=== PATIENT | female | born 1995 | race Caucasian/White ===

== ENCOUNTER 2018-07-25 15:46 | Emergency (ER) | payer OTHER ==
[2018-07-25] MEDS: LIDOCAINE W/EPINEPHRINE 1% 20ML VIAL SC (17:56)
[2018-07-25] MEDS: ADACEL/BOOSTRIX VACCINE (DIPHTH/PERTUSS/ACELL/TETANUS)0.5ML SYR (90715) IM (17:56)
== END 2018-07-25 18:48 | disposition home or self-care (01) ==
LOC: M ED 15:46
DX: S61.412A Laceration without foreign body of left hand, initial encounter (principal); W25.XXXA Contact with sharp glass, initial encounter; Y92.018 Other place in single-family (private) house as the place of occurrence of the external cause; F33.9 Major depressive disorder, recurrent, unspecified; F41.9 Anxiety disorder, unspecified; Z88.1 Allergy status to other antibiotic agents; Z88.2 Allergy status to sulfonamides
CPT/HCPCS: 90715

== ENCOUNTER 2018-08-04 11:19 | Emergency (ER) | payer OTHER | END 2018-08-04 11:52 | disposition home or self-care (01) | LOC: M ED 11:19 | DX: Z48.02 Encounter for removal of sutures (principal); F41.9 Anxiety disorder, unspecified; F32.9 Major depressive disorder, single episode, unspecified; Z88.2 Allergy status to sulfonamides | CPT/HCPCS: 99282 ==

== ENCOUNTER 2018-10-17 11:04 | Emergency (ER) | payer BC, OTHER | END 2018-10-17 11:42 | disposition home or self-care (01) | LOC: M ED 11:04 | DX: K08.89 Other specified disorders of teeth and supporting structures (principal); F33.9 Major depressive disorder, recurrent, unspecified; F41.9 Anxiety disorder, unspecified; Z88.1 Allergy status to other antibiotic agents; Z88.2 Allergy status to sulfonamides | CPT/HCPCS: 99282 ==

== ENCOUNTER 2019-08-07 10:02 | Emergency (ER) | payer BC, MEDICAID, OTHER, SELFPAY ==
[~2019-08-07] VITALS: Ht 165.1 cm; Wt 79.5 kg
[~2019-08-07 10:02] MED LIST: AMOX500C PO; IBUP-1022; [UNRECOGNIZED DRUG - REMARK] OD
[2019-08-07] MEDS ORDERED: KETOROLAC 30 MG/ML VIAL (J1885) IV ONE (10:30)
[2019-08-07] MEDS ORDERED: NS 1,000 ML IV ONE (10:30)
[2019-08-07] MEDS ORDERED: ONDANSETRON 4MG/2ML VIAL (J2405) IV ONE (10:30)
[2019-08-07] MEDS ORDERED: ISOVUE-370 76% 100ML VIAL (Q9967) As Ordered ONE (11:12)
[2019-08-07 11:16] LABS: BASO # 0.1 10^3/uL (0.0-0.2); BASO % 0.6 % (0.0-1.0); EOS # 0.1 10^3/uL (0.0-0.5); EOS % 0.4 % (0.0-3.0); HEMOGLOBIN 12.2 g/dl (12.0-15.5); LYMPH # 1.5 10^3/uL (1.5-5.0); MEAN CORPUSCULAR HEMOGLOBIN 27.2 pg (27.0-33.0); MEAN CORPUSCULAR HGB CONC 32.1 g/dl (32.0-36.5); MEAN CORPUSCULAR VOLUME 84.6 fl (80.0-96.0); MONO # 0.6 10^3/uL (0.0-0.8); MONO % 4.8 % (0.0-5.0); NEUTROPHILS # 10.4 10^3/uL (1.5-8.5); NEUTROPHILS % 81.8 % (36.0-66.0); PLATELET COUNT, AUTOMATED 328 10^3/uL (150-450); RED BLOOD COUNT 4.49 10^6/uL (4.00-5.40); WHITE BLOOD COUNT 12.7 10^3/uL (4.0-10.0)
[2019-08-07 11:37] LABS: ALBUMIN 4.3 GM/DL (3.2-5.2); BILIRUBIN,DIRECT 0.2 MG/DL (0.0-0.2); BILIRUBIN,TOTAL 0.6 MG/DL (0.2-1.0); TOTAL PROTEIN 7.8 GM/DL (6.4-8.2)
--- NOTE | 2019-08-07 12:21 | REP ---
CT ABDOMEN AND PELVIS WITH IV CONTRAST: TECHNIQUE: Axial contrast enhanced images from the lung bases to the pubic symphysis using 100 mL Isovue 370 intravenous contrast material with multiplanar reformations. The visualized lung bases are clear. The liver demonstrates focal fatty infiltration anteriorly along the fissure for the ligamentum teres. Gallbladder is grossly unremarkable. Spleen, adrenals, and pancreas, as well as kidneys appear unremarkable. There is no hydronephrosis bilaterally. There is no adenopathy. There is no free air. No bowel wall thickening is seen. There is no evidence of appendicitis. In the pelvis, there is a complex septated cystic mass extending above the uterus. This probably arises from the right ovary. It measures approximately 9.8 x 8.0 cm. Anteriorly, there is a more simple appearing oval cyst 3.5 cm maximally, which is likely arising from the left ovary. There is mild free fluid in the right lower quadrant. Urinary bladder is not well distended and not well evaluated. IMPRESSION: Large complex septated cystic mass in the pelvis probably arising from the right ovary measuring 9.8 x 8.0 cm. More anteriorly, an oval simple appearing cyst probably arises from the left ovary, maximum diameter 3.5 cm. There is mild free fluid in the right lower quadrant. No evidence of appendicitis. Electronically Signed by Delgado Blackmon MD 08/07/2019 05:38 P
--- NOTE | 2019-08-07 13:56 | REP ---
PELVIC ULTRASOUND: Real-time sonographic evaluation of the pelvis is performed utilizing transabdominal technique. The bladder measures 4.8 x 3.6 x 5.0 cm. The uterus measures 6.8 x 3.2 x 6.3 cm. Endometrial thickness is 6 mm. Right ovary is markedly enlarged and is essentially replaced by a complex cystic mass, which measures 4.8 x 8.5 x 9.0 cm. There is a simple cyst of the left ovary 3.2 x 2.4 x 3.0 cm. No torsion is seen bilaterally, RI right ovary 0.58 and left ovary 0.62. No significant free fluid is seen in the pelvis. IMPRESSION: Complex cystic mass right ovary with simple cyst left ovary as discussed above. No torsion. Electronically Signed by Delgado Blackmon MD 08/07/2019 05:38 P
[2019-08-07] MEDS ORDERED: KETO10TAB PO (15:08)
[2019-08-07 15:12] VITALS: BP 125/65
--- NOTE | 2019-08-08 12:41 | ED PDOC ---
Post-Departure Follow-Up dr gupta faxed formal report of pelvic us for fu Rosa Jefferson MD Aug 08, 2019 12:41
== END 2019-08-07 15:19 | disposition home or self-care (01) ==
LOC: M ED 10:02
DX: N83.291 Other ovarian cyst, right side (principal); F33.9 Major depressive disorder, recurrent, unspecified; F41.9 Anxiety disorder, unspecified; Z88.2 Allergy status to sulfonamides
CPT/HCPCS: 74177; 76856; 80047; 80076; 81001; 83690; 84702; 85025; 87086; 93976; 96361; 96374; 96375; 99284; J1885; J2405; Q9967

== ENCOUNTER → 2019-12-12 | Outpatient (CLI) | payer OTHER ==
[~2019-12-12] MED LIST changes: +KETO10TAB PO
[2019-12-12 15:26] LABS: HEPATITIS C VIRUS ABY INDEX < 0.0 INDEX (<0.8); HIV 1&2 SCREEN CENTAUR NEGATIVE (NEGATIVE)
== END ==
LOC: M PLALAB 12:03
PROVIDERS: ATTEND Advanced Practice Midwife
DX: Z11.3 Encounter for screening for infections with a predominantly sexual mode of transmission (principal); Z80.3 Family history of malignant neoplasm of breast; Z80.49 Family history of malignant neoplasm of other genital organs

== ENCOUNTER → 2019-12-16 | Outpatient (CLI) | payer BC, MEDICAID, OTHER ==
--- NOTE | 2019-12-17 07:34 | REP ---
BILATERAL MAMMOGRAM WITH 3D TOMOSYNTHESIS AND LEFT BREAST ULTRASOUND: CLINICAL HISTORY: Bilateral breast pain. This is particularly present in the upper left breast. Family history of breast cancer in paternal grandmother. This is a baseline mammogram. MLO and CC views of both breast performed in the MLO and CC projections. There is heterogeneously dense fibroglandular tissue bilaterally with no evidence of suspicious mass or clustered microcalcifications. Small axillary lymph nodes are present bilaterally. Real-time sonographic evaluation of the upper left breast performed in the region of the most pain. No cystic or solid nodule is seen. IMPRESSION: BIRADS 2: BI-RADS/ACR category 2 mammogram. Benign Findings. ACR 2 benign. Mildly dense breast parenchyma bilaterally. No mass or clustered microcalcifications. No sonographic evidence of mass in the region of pain in the upper left breast. Clinical correlation and followup is recommended. This mammogram was interpreted with the aid of an FDA-approved computer-aided detection system. A. Negative x-ray reports should not delay biopsy if a dominant or clinically suspicious mass is present. B. Four to eight percent of cancers are not identified by x-ray. C. Adenosis and dense breasts may obscure an underlying neoplasm. The patient states she/he had a clinical breast exam in November 2019. The patient letter being requested is M2. Electronically Signed by Delgado Blackmon MD 12/17/2019 10:35 P
== END ==
LOC: M RAD 14:11
PROVIDERS: ATTEND Advanced Practice Midwife
DX: N64.4 Mastodynia (principal); Z80.3 Family history of malignant neoplasm of breast
CPT/HCPCS: 76642; 77066; G0279

== ENCOUNTER → 2020-01-20 | Outpatient (CLI) | payer BC, MEDICAID, OTHER ==
--- NOTE | 2020-01-20 13:04 | REP ---
Pelvic sonography: History: Ovarian cyst left side. Comparison pelvic sonography August 07, 2019. This showed a complex cystic lesion in the right ovary 4.8 x 8.5 x 9.0 cm. There was a simple appearing cyst in the left ovary 3.2 x 2.4 x 3.0 cm. Today's pelvic sonography findings: Transabdominal scanning is performed. Uterine dimensions are normal at 6.9 x 3.5 x 5.1 cm. Endometrial echo is 1.1 cm thick and centrally placed. No focal uterine mass is seen. No free fluid is noted. There is a large complex cystic lesion in the right adnexa measuring 9.5 x 8.2 x 6.5 cm in overall dimension. This is larger than on the prior study. There is Doppler flow in the right ovary, resistive index 0.63. The left ovary is enlarged as well measuring 6.4 x 4.0 x 6.9 cm in overall dimension. Its Doppler flow is visible, resistive index 0.51. There are two large left adnexal cysts. A thin septation is seen in the one of the cysts. This cyst measures 2.9 x 3.3 x 3.9 cm. A second cystic component in the left ovary today measures 3.6 x 3.0 x 3.2 cm. Impression: Cystic lesions bilaterally. Complex cystic lesion in the right adnexal has enlarged since the prior study. There is a second cystic lesion in the left ovary today.
== END ==
LOC: M WHC 09:24
PROVIDERS: ATTEND Obstetrics & Gynecology
DX: N83.292 Other ovarian cyst, left side (principal); N83.8 Other noninflammatory disorders of ovary, fallopian tube and broad ligament

== ENCOUNTER → 2020-02-04 | Outpatient (CLI) | payer MEDICAID ==
[2020-02-04 20:01] LABS: BASO # 0.1 10^3/uL (0.0-0.2); EOS # 0.1 10^3/uL (0.0-0.5); EOS % 1.6 % (0.0-3.0); HEMATOCRIT 31.6 % (36.0-47.0); LYMPH # 1.7 10^3/uL (1.5-5.0); LYMPH % 32.2 % (24.0-44.0); MEAN CORPUSCULAR HEMOGLOBIN 27.2 pg (27.0-33.0); MEAN CORPUSCULAR HGB CONC 31.6 g/dl (32.0-36.5); MEAN CORPUSCULAR VOLUME 85.9 fl (80.0-96.0); MONO # 0.4 10^3/uL (0.0-0.8); MONO % 7.8 % (0.0-5.0); NEUTROPHILS % 57.2 % (36.0-66.0); PLATELET COUNT, AUTOMATED 273 10^3/uL (150-450); RED BLOOD COUNT 3.68 10^6/uL (4.00-5.40); WHITE BLOOD COUNT 5.2 10^3/uL (4.0-10.0)
[2020-02-04 20:35] LABS: ALBUMIN 3.6 GM/DL (3.2-5.2); ALT/SGPT 15 U/L (12-78); BILIRUBIN,TOTAL 0.4 MG/DL (0.2-1.0); BLOOD UREA NITROGEN 17 MG/DL (7-18); CALCIUM LEVEL 8.8 MG/DL (8.5-10.1); CARBON DIOXIDE LEVEL 29 MEQ/L (21-32); CHLORIDE LEVEL 112 MEQ/L (98-107); CHOLESTEROL LEVEL 125 MG/DL (<200); CHOLESTEROL RISK RATIO 2.976 (<5); CREATININE FOR GFR 0.69 MG/DL (0.55-1.30); FREE T4 0.98 NG/DL (0.76-1.46); GLOMERULAR FILTRATION RATE > 60.0 (>60); GLUCOSE, FASTING 78 MG/DL (70-100); HDL CHOLESTEROL 42 MG/DL (>40); LDL CHOLESTEROL 73 MG/DL (<100); NON-HDL-C 83 MG/DL; POTASSIUM SERUM 3.8 MEQ/L (3.5-5.1); SODIUM LEVEL 143 MEQ/L (136-145); TOTAL 25(OH) VITAMIN D 12.6 NG/ML (30.0-100.0); TOTAL PROTEIN 6.6 GM/DL (6.4-8.2); TRIGLYCERIDES LEVEL 48 MG/DL (<150)
== END ==
LOC: M WUC 11:01
PROVIDERS: ATTEND Physician Assistant
DX: Z13.21 Encounter for screening for nutritional disorder (principal); Z13.29 Encounter for screening for other suspected endocrine disorder; Z13.220 Encounter for screening for lipoid disorders; Z91.09 Other allergy status, other than to drugs and biological substances

== ENCOUNTER → 2020-03-13 | Outpatient (CLI) | payer MEDICAID | LOC: M WHC 09:52 | PROVIDERS: ATTEND Obstetrics & Gynecology | DX: D27.9 Benign neoplasm of unspecified ovary (principal) ==

== ENCOUNTER → 2020-04-06 | Outpatient (CLI) | payer MEDICAID ==
--- NOTE | 2020-04-06 14:16 | REP ---
PELVIC ULTRASOUND: Real-time sonographic evaluation of the pelvis is performed utilizing transabdominal technique. The bladder measures 5.3 x 6.1 cm. The uterus is 7.2 x 3.7 x 4.8 cm. The endometrial thickness is 8 mm with no endometrial fluid collection. Once again, there is a complex right adnexal mass containing scattered internal echoes and septations. Peripheral soft tissue component appears unchanged. It measures 9.6 x 6.9 x 8.4 cm and does not appear to have significantly changed since the study of 01/20/2020. Left ovary measures 5.6 x 3.9 x 4.6 cm. A cyst is seen measuring 3.9 x 2.7 x 3.5 cm. Prior study showed two similar-sized cysts, therefore, one appears to have resolved. No free fluid is seen. Blood flow is seen in each ovary with duplex Doppler evaluation, with no torsion. IMPRESSION: No change in the complex cystic mass right ovary. One of the previously identified two left ovarian cysts appears to have resolved. There is one persistent cyst of the left ovary with a maximum diameter of 3.9 cm.
== END ==
LOC: M WHC 12:53
PROVIDERS: ATTEND Obstetrics & Gynecology
DX: D27.0 Benign neoplasm of right ovary (principal)

== ENCOUNTER → 2020-05-11 | Outpatient (CLI) | payer MEDICAID ==
[~2020-05-11] MED LIST changes: +CLAR10CA3 PO; +IBUP200C25 PO; +IBUP80TA PO; +IRON27TA2 PO; +PERCOCET PO; +TRIA25CR TOP; +VIST25CA PO; +VITA50005 PO
== END ==
LOC: M LABSMTC 09:52
PROVIDERS: ATTEND Anesthesiology
DX: Z01.818 Encounter for other preprocedural examination (principal)
CPT/HCPCS: C9803; U0003

== ENCOUNTER 2020-05-14 07:41 | Day surgery (SDC) | payer MEDICAID ==
[~2020-05-14] VITALS: Ht 165.1 cm; Wt 83.8 kg
[~2020-05-14 07:41] MED LIST changes: +BUPIVACAINE HCL 0.25% 30ML VIAL As Ordered ONE; -IBUP80TA PO; +LR 1,000 ML IV ONE; -PERCOCET PO
[2020-05-14] MEDS ORDERED: MIDAZOLAM INJ 2MG/2ML VIAL (J2250 PER 1MG) As Ordered ONE (08:09)
[2020-05-14] MEDS ORDERED: ONDANSETRON 4MG/2ML VIAL As Ordered ONE (08:09)
[2020-05-14] MEDS ORDERED: LIDOCAINE 2% 100MG/5ML SDV (FOR ANES.) As Ordered ONE (08:09)
[2020-05-14] MEDS ORDERED: fentaNYL 100 MCG/2 ML INJECTION (J3010) As Ordered ONE ×2 (08:09→10:16)
[2020-05-14] MEDS ORDERED: dexameTHASONE 4 MG/ML 1ML VIAL (J1100 PER 1MG) As Ordered ONE (08:09)
[2020-05-14] MEDS ORDERED: propofoL 200 MG/20 ML VIAL As Ordered ONE (08:09)
[2020-05-14] MEDS ORDERED: ROCURONIUM BROMIDE 50 MG/5 ML VIAL As Ordered ONE (08:09)
[2020-05-14 08:23] LABS: HEMATOCRIT 37.1 % (36.0-47.0); HEMOGLOBIN 12.1 g/dl (12.0-15.5); MEAN CORPUSCULAR HEMOGLOBIN 28.7 pg (27.0-33.0); MEAN CORPUSCULAR HGB CONC 32.6 g/dl (32.0-36.5); MEAN CORPUSCULAR VOLUME 87.9 fl (80.0-96.0); PLATELET COUNT, AUTOMATED 295 10^3/uL (150-450); RED BLOOD COUNT 4.22 10^6/uL (4.00-5.40); WHITE BLOOD COUNT 7.4 10^3/uL (4.0-10.0)
[2020-05-14] MEDS ORDERED: SCOPOLAMINE 1MG TRANSDERMAL PATCH TOP ONE (08:30)
[2020-05-14] MEDS ORDERED: ACETAMINOPHEN 1000MG 100ML IV BTL (OFIRMEV) (J0131 PER 10MG) As Ordered ONE (10:16)
[2020-05-14] MEDS ORDERED: KETOROLAC 60MG 2ML VIAL As Ordered ONE (10:24)
[2020-05-14] MEDS ORDERED: SUGAMMADEX SODIUM 500 MG/5 ML VIAL (BRIDION) As Ordered ONE (10:24)
[2020-05-14] MEDS ORDERED: ESMOLOL INJ 100MG/10ML VIAL As Ordered ONE (10:53)
[2020-05-14] MEDS ORDERED: DESFLURANE 240 ML INHALANT As Ordered ONE (11:48)
[2020-05-14] MEDS ORDERED: oxyCODONE 5MG TAB PO PRN (12:30)
[2020-05-14] MEDS ORDERED: PERCOCET 5MG/325MG TAB PO PRN (12:30)
[2020-05-14] MEDS ORDERED: ONDANSETRON 4MG/2ML VIAL IV PRN (12:30)
[2020-05-14] MEDS ORDERED: fentaNYL 100 MCG/2 ML INJECTION (J3010) IV PRN (12:30)
[2020-05-14] MEDS ORDERED: LR 1,000 ML IV SCH (12:30)
[2020-05-14] MEDS ORDERED: MEPERIDINE INJ 25 MG/ML VIAL (J2175) IV PRN (12:30)
[2020-05-14] MEDS ORDERED: IBUP80TA PO (12:38)
[2020-05-14] MEDS ORDERED: PERCOCET PO (12:39)
--- NOTE | 2020-05-14 12:54 | ROOPDOC ---
[facility] Report Of Operation Report of Operation DATE OF PROCEDURE: 05/14/2020 PREOPERATIVE DIAGNOSIS: Right ovarian cysts POSTOPERATIVE DIAGNOSIS: 1. Right endometrioma 2. Left ovarian cysts 3. Endometriosis PROCEDURE: Laparoscopic bilateral ovarian cystectomy. SURGEON: Muriel Holliday MD COREMAKER SUPERVISOR: Waqar Andres MD ANESTHESIA: General SPECIMEN: Right endometrioma, left ovarian cysts URINE OUTPUT: 150 mL. ESTIMATED BLOOD LOSS: 100 mL. INTRAVENOUS FLUIDS: 1000 mL of lactated Ringer solution. PREOPERATIVE ANTIBIOTICS: None. INFECTION CLASSIFICATION: 1. OPERATIVE FINDINGS: The patient had an approximately 7 cm right endometrioma and left 4 cm ovarian cyst. Endometriosis throughout the posterior cul-de-sac, which was initially obliterated. DESCRIPTION OF OPERATION: After informed consent was obtained and written content was reviewed, the patient was brought to the operating room where general endotracheal anesthesia was obtained. She was then placed in lithotomy position and was prepped and draped in a normal sterile fashion. A time out in the operating room was then performed identifying the patient, the procedure to be performed, as well as drug allergies. A bivalved speculum was then placed revealing the cervix. The anterior lip of the cervix was grasped with a single toothed tenaculum. A Hulka tenaculum was advanced through the cervical os for means to manipulate the uterus. The single tooth tenaculum as well as the speculum was removed. A Vargas catheter was in place and set to gravity. Gloves were changed. Attention was turned to the patient's abdomen. The umbilical region was infused with 0.25% Marcaine. An incision was made in this area. A 11 mm trocar and sleeve was advanced. The laparoscope was then replaced revealing intra-abdominal placement. The pneumoperitoneum was then obtained with CO2 gas. Two additional port sites were placed, to left and right side of the patient's abdomen. These areas were infused with 0.25% Marcaine. Incision was made in each one of these areas and 5 mm trocars and sleeves were advanced through each one of these incisions under direct visualization. The abdomen was then surveyed with the above noted findings. Next, using a harmonic scalpel device, the left ovarian cyst wall was then opened. This was further dissected out. Intraoperative rupture was performed, I was then able to peel out the left ovarian cyst and removed from the patient's abdomen. Next, using Harmonic Lico scalpel device, lysis of adhesion was performed, releasing the right adnexa from the posterior cul-de-sac. This area was densely adhered with endometriosis. Intraoperative rupture was performed, productive of chocolate-appearing fluid consistent with an endometrioma. The cyst wall was then dissected off the ovarian tissue and this was removed in pieces from the abdomen. The abdomen was then suctioned and irrigated. Fallopian tubes were inspected and noted to be normal. The surgical sites were then inspected and noted to be hemostatic. Instruments were then removed from the patient's abdomen. The pneumoperitoneum was then released. All three skin incisions were closed with #4-0 Monocryl and dressed with Dermabond. Vargas catheter was removed as well as Hulka tenaculum. Tenaculum sites inspected and noted to be hemostatic. The patient was then taken out of lithotomy position, was awakened from general anesthesia and taken to recovery in stable condition. Dr. Andres, my ophthalmic surgical assistant, played an essential role during surgery. He assisted with tissue identification, retraction, as well as, assisting with the laparoscopic cystectomy and wound closure. MURIEL HOLLIDAY MD. May 14, 2020 12:54
[2020-05-14 15:00] VITALS: BP 134/70
[2020-05-14] MEDS ORDERED: KETOROLAC 30 MG/ML 1ML VIAL IV SCH (18:00)
== END 2020-05-14 15:09 | disposition home or self-care (01) ==
LOC: M SDC 07:41
PROVIDERS: ATTEND Obstetrics & Gynecology
DX: N80.1 Endometriosis of ovary (principal); N83.202 Unspecified ovarian cyst, left side; N80.3 Endometriosis of pelvic peritoneum; Z86.2 Personal history of diseases of the blood and blood-forming organs and certain disorders involving the immune mechanism; Z91.048 Other nonmedicinal substance allergy status; Z86.59 Personal history of other mental and behavioral disorders; Z88.2 Allergy status to sulfonamides
CPT/HCPCS: 36415; 58662; 81025; 85027; 86850; 86900; 86901; 88305; J0131; J1100; J1885; J2250; J2405; J3010

== ENCOUNTER → 2020-09-06 | Outpatient (CLI) | payer MEDICAID ==
[~2020-09-06] MED LIST changes: -BUPIVACAINE HCL 0.25% 30ML VIAL As Ordered ONE; +IBUP80TA PO; -LR 1,000 ML IV ONE; +PERCOCET PO
[2020-09-06 14:58] LABS: BASO # 0.1 10^3/uL (0.0-0.2); EOS # 0.1 10^3/uL (0.0-0.5); EOS % 1.2 % (0.0-3.0); HEMATOCRIT 43.7 % (36.0-47.0); HEMOGLOBIN 14.6 g/dl (12.0-15.5); LYMPH # 1.6 10^3/uL (1.5-5.0); LYMPH % 27.8 % (24.0-44.0); MEAN CORPUSCULAR HEMOGLOBIN 30.2 pg (27.0-33.0); MEAN CORPUSCULAR HGB CONC 33.4 g/dl (32.0-36.5); MEAN CORPUSCULAR VOLUME 90.3 fl (80.0-96.0); MONO # 0.5 10^3/uL (0.0-0.8); MONO % 8.1 % (0.0-5.0); NEUTROPHILS # 3.6 10^3/uL (1.5-8.5); NEUTROPHILS % 61.7 % (36.0-66.0); PLATELET COUNT, AUTOMATED 293 10^3/uL (150-450); RED BLOOD COUNT 4.84 10^6/uL (4.00-5.40); WHITE BLOOD COUNT 5.8 10^3/uL (4.0-10.0)
[2020-09-06 15:33] LABS: FREE T4 1.26 NG/DL (0.76-1.46); PERCENT SATURATION 18.1 % (13.2-45.0); THYROID STIMULATING HORMONE 2.1 uIU/ML (0.358-3.740)
== END ==
LOC: M WUC 10:50
PROVIDERS: ATTEND Family Medicine
DX: D64.9 Anemia, unspecified (principal); R53.83 Other fatigue

== ENCOUNTER 2021-01-08 11:30 | Emergency (ER) | payer BC, MEDICAID ==
[~2021-01-08] VITALS: Ht 165.1 cm; Wt 86.5 kg
--- OUTSIDE RECORDS SUMMARY | 2021-01-08 11:37 | CCD | Continuity of Care Document ---
Author Author Dariela LORENZANA Organization Unknown Address [address] [place] [address] [place] [address] Phone [phone] Care Team Providers Care Maritime Pilot Name Role Phone [facility] [phone] Problems Description No Information Available Social History Type Date Description Comments Sex Unknown ETOH Use Denies alcohol use Tobacco Use Start: Unknown Patient has never smoked Smoking Status Reviewed: 11/25/20 Patient has never smoked Allergies, Adverse Reactions, Alerts Active Allergies Reaction Severity Comments Date Sulfa 08/01/2018 Medications Active Medications SIG Qnty Indications Ordering Provide r Date Trimethoprim Sulfate/Polymyxin B Sulfate 37600-5.1Unit/ML-% Solution 1 drop in both eyes four times daily x5-7 days 10ml H10.31 Bean Olivas JR., M.D. 11/25/2020 Ibuprofen 200 200mg Tablets Unknown Vistaril Unknown Iron 100/C Unknown Hydroxyzine Pamoate 25mg Capsules Take 1 Capsule By Mouth Every 8 Hours as Needed Unknown Loratadine 10mg Tablets Take 1 Tablet By Mouth Once Daily Unknown Albuterol Sulfate HFA 108(90Base) mcg/Act Aerosol Inhale 1 puff By Mouth Every 4 Hours as Needed Unknown Immunizations CPT Code Status Date Vaccine Reaction Lot # [id number] Given 08/01/2018 PPD- TB Intradermal Test neg ative PPD 08/04/18- 0 mm of induration Laura NORMAN [id number] Vital Signs Date Vital Result Comment 11/25/2020 3:29pm BP Systolic 115 mmHg BP Diastolic 70 mmHg Heart Rate 86 /min Respiratory Rate 18 /min O2 % BldC Oximetry 98 % Body Temperature 97.7 F Weight 187.00 lb Height 65 inches 5'5" BMI (Body Mass Index) 31.1 kg/m2 Pain Level 3 08/01/2018 2:32pm BP Systolic 111 mmHg BP Diastolic 70 mmHg Heart Rate 82 /min Respiratory Rate 17 /min O2 % BldC Oximetry 98 % Body Temperature 98.2 F Weight 204.00 lb Height 65 inches 5'5" BMI (Body Mass Index) 33.9 kg/m2 Results Description No Information Available Procedures Description No Information Available Medical Devices Description No Information Available Encounters Type Date Location Provider Dx Diagnosis Office Visit 11/25/2020 3:30p Main Office Richelle Lorenzana NP H10. 31 Unspecified acute conjunctivitis, right eye Assessments Date Code Description Provider 11/25/2020 H10.31 Unspecified acute conjunctivitis , right eye Richelle Lorenzana NP Plan of Treatment 11/25/2020 - Richelle Lorenzana NP* H10.31 Unspecified acute conjunctivitis, right eye* New Medication:* Trimethoprim Sulfate/Polymyxin B Sulfate 73276-9.1 Unit/ML-% - 1 drop in both eyes four times daily x5-7 days * Comments:* use abx eye gtt's as directed; advised hand hygiene prior to instilling gtts, avoid touching tip of bottle to the eyelid/eyelashes to decrease r/f recurrent conjunctivitiswarm compressf/u PRN or with PCPpatient v/u & agrees to plan Functional Status Description No Information Available Mental Status Description No Information Available Referrals Description No Information Available
--- OUTSIDE RECORDS SUMMARY | 2021-01-08 11:37 | CCD ---
Author Author [facility] Organization [facility] Address Unknown Phone Unavailable Care Team Providers Care Lens Grinder Name Role Phone Richelle Patterson SERVICE ENGINEER Unavailable Unavailable Patterson, Richelle SERVICE ENGINEER Unavailable Unavailable Patterson, Richelle SERVICE ENGINEER Unavailable Unavailable Patterson Richelle SERVICE ENGINEER Unavailable Unavailable Patterson, Richelle SERVICE ENGINEER Unavailable Unavailable Patterson Richelle SERVICE ENGINEER Unavailable Unavailable Patterson Richelle SERVICE ENGINEER Unavailable Unavailable Patterson Richelle SERVICE ENGINEER Unavailable Unavailable Patterson Richelle SERVICE ENGINEER Unavailable Unavailable Patterson Richelle SERVICE ENGINEER Unavailable Unavailable Patterson Richelle SERVICE ENGINEER Unavailable Unavailable Re-disclosure Warning The records that you are about to access may contain information from federally-assisted alcohol or drug abuse programs. If such information is present, then the following federally mandated warning applies: This information has been disclosed to you from records protected by federal confidentiality rules (42 CFR part 2). The federal rules prohibit you from making any further disclosure of this information unless further disclosure is expressly permitted by the written consent of the person to whom it pertains or as otherwise permitted by 42 CFR part 2. A general authorization for the release of medical or other information is NOT sufficient for this purpose. The Federal rules restrict any use of the information to criminally investigate or prosecute any alcohol or drug abuse patient.The records that you are about to access may contain highly sensitive health information, the redisclosure of which is protected by Article 27-F of the [facility] Public Health law. If you continue you may have access to information: Regarding HIV / AIDS; Provided by facilities licensed or operated by the [facility] Office of Mental Health; or Provided by the [facility] Office for People With Developmental Disabilities. If such information is present, then the following [facility] mandated warning applies: This information has been disclosed to you from confidential records which are protected by state law. State law prohibits you from making any further disclosure of this information without the specific written consent of the person to whom it pertains, or as otherwise permitted by law. Any unauthorized further disclosure in violation of state law may result in a fine or half-way sentence or both. A general authorization for the release of medical or other information is NOT sufficient authorization for further disc losure. Allergies and Adverse Reactions Type Description Substance Reaction Status Data Source(s ) Sulfa (for allergy use only) Sulfa (for allergy use only) [place] lfa (for allergy use only) Hives Active eCW1 ([facility]) Sulfa (for allergy use only) Sulfa (for allergy use only) [place] lfa (for allergy use only) Hives Active eCW1 ([facility]) Sulfa (for allergy use only) Sulfa (for allergy use only) [place] lfa (for allergy use only) Hives Active [facility] ([facility]) Encounters Encounter Providers Location Date Indications Data Source(s ) Outpatient Attender: Richelle shay 11/25/2020 02:30:00 PM EST MEDENT ([facility]) Outpatient [address] [facility] [id number] 11/24/2020 12:00:00 AM EST eCW1 ([facility]) ([place]) [facility] Nurse Visit [address] [place] [address] 11/22/2020 12:00:00 AM EST eCW1 ([facility]) Outpatient [address] [facility] [address] 09/08/2020 12:00:00 AM EDT eCW1 ([facility]) ( [place]) [facility] Nurse Visit [address] [place] [address] 08/27/2020 12:00:00 AM EDT eCW1 ([facility]) Outpatient [address] [facility] [id number] 08/25/2020 12:00:00 AM EDT eCW1 ([facility]) ( [place]) [facility] Post Op [address] [place] [address] 06/11/2020 12:00:00 AM EDT eCW1 ([facility]) [facility] [address] [place] [address] 06/01/2020 12:00:00 AM EDT eCW1 ([facility]) [facility] [address] [place] [address] 05/14/2020 12:00:00 AM EDT eCW1 ([facility]) [facility] [address] [place] [address] 04/28/2020 12:00:00 AM EDT eCW1 ([facility]) [facility] [address] [place] [address] 04/08/2020 12:00:00 AM EDT eCW1 ([facility]) [facility] [address] [place] [address] 03/25/2020 12:00:00 AM EDT eCW1 ([facility]) [facility] Price [address] [facility] [address] 02/09/2020 12:00:00 AM EDT eCW1 ([facility]) [facility] [address] [place] [address] 02/09/2020 12:00:00 AM EDT eCW1 ([facility]) [facility] [address] [place] [address] 02/02/2020 12:00:00 AM EDT eCW1 ([facility]) Outpatient 01/22/2020 02:30:00 PM EST [facility] [address] [place] [address] 01/12/2020 12:00:00 AM EST eCW1 ([facility]) [facility] Julio Cesar Hubbard [address] [place] [address] 12/26/2019 12:00:00 AM EST eCW1 ([facility]) [facility] [address] [place] [address] 12/12/2019 12:00:00 AM EST eCW1 ([facility]) Immunizations Vaccine Date Status Description Data Source(s) Depo-Provera 150mg/1mL (Medroxy-Progestrone Acetate) 021 09:16:00 AM EST completed eCW1 ([facility]) Depo-Provera 150mg/1mL (Medroxy-Progestrone Acetate) 021 09:16:00 AM EST completed eCW1 ([facility]) Depo-Provera 150mg/1mL (Medroxy-Progestrone Acetate) 020 09:15:00 AM EDT completed eCW1 ([facility]) Depo-Provera 150mg/1mL (Medroxy-Progestrone Acetate) 09:15:00 AM EDT completed eCW1 ([facility]) Depo-Provera 150mg/1mL (Medroxy-Progestrone Acetate) 09:15:00 AM EDT completed eCW1 ([facility]) Depo-Provera 150mg/1mL (Medroxy-Progestrone Acetate) 09:15:00 AM EDT completed eCW1 ([facility]) Depo-Provera 150mg/1mL (Medroxy-Progestrone Acetate) 09:15:00 AM EDT completed eCW1 ([facility]) Depo-Provera 150mg/1mL (Medroxy-Progestrone Acetate) 09:15:00 AM EDT completed eCW1 ([facility]) influenza, recombinant, quadrIvalent,injectable, prese rvative free 08/25/2020 05:03:00 PM EDT completed eCW1 ([facility]) influenza, recombinant, quadrIvalent,injectable, prese rvative free 08/25/2020 05:03:00 PM EDT completed eCW1 ([facility]) influenza, recombinant, quadrIvalent,injectable, prese rvative free 08/25/2020 05:03:00 PM EDT completed eCW1 ([facility]) influenza, recombinant, quadrIvalent,injectable, prese rvative free 08/25/2020 05:03:00 PM EDT completed eCW1 ([facility]) influenza, recombinant, quadrIvalent,injectable, prese rvative free 08/25/2020 05:03:00 PM EDT completed eCW1 ([facility]) influenza, recombinant, quadrIvalent,injectable, prese rvative free 08/25/2020 05:03:00 PM EDT completed eCW1 ([facility]) Depo-Provera 150mg/1mL (Medroxy-Progestrone Acetate) 01:04:00 PM EDT completed eCW1 ([facility]) Depo-Provera 150mg/1mL (Medroxy-Progestrone Acetate) 01:04:00 PM EDT completed eCW1 ([facility]) Depo-Provera 150mg/1mL (Medroxy-Progestrone Acetate) 01:04:00 PM EDT completed eCW1 ([facility]) Depo-Provera 150mg/1mL (Medroxy-Progestrone Acetate) 01:04:00 PM EDT completed eCW1 ([facility]) Depo-Provera 150mg/1mL (Medroxy-Progestrone Acetate) 01:04:00 PM EDT completed eCW1 ([facility]) Depo-Provera 150mg/1mL (Medroxy-Progestrone Acetate) 01:04:00 PM EDT completed eCW1 ([facility]) Medications Medication Brand Name Start Date Product Form Dose Route Admi nistrative Instructions Pharmacy Instructions Status Indications Reaction Description Data Source(s) Polymyxin B 89701 UNT/ML / Trimethoprim 1 MG/ML Ophtha lmic Solution Trimethoprim Sulfate/Polymyxin B Sulfate 11/25/2020 12:00:00 AM EST OPHTH ALMIC active MEDENT ([facility]) 24 HR venlafaxine 37.5 MG Extended Relea se Oral Capsule [Effexor] Effexor XR 37.5 MG Effexor XR 37.5 MG 11/24/2020 12:00:00 AM EST 1.0 {cap sule_with_food} active Effexor XR 37.5 MG e CW1 ([facility]) 200 ACTUAT Albuterol 0.09 MG/ACTUAT Mete red Dose Inhaler [ProAir] ProAir HFA 108 (90 Base) MCG/ACT ProAir HFA 108 (90 Base) MCG/ACT 02/09/2020 12:00:00 AM EDT 1.0 {puff_as_needed} active Pro Air HFA 108 (90 Base) MCG/ACT eCW1 ([facility]) Hydroxyzine Pamoate 25 MG Oral Capsule [Vistaril] Vistaril 2 5 MG Vistaril 25 MG 02/09/2020 12:00:00 AM EDT 1.0 {capsule_as_needed} active Vistaril 25 MG eCW1 ([facility]) Ergocalciferol 40845 UNT Oral Capsule [Drisdol] Drisdo l 1.25 MG (34584 UT) Drisdol 1.25 MG (84029 UT) 02/09/2020 12:00:00 AM EDT 1.0 {capsule} active Drisdol 1.25 MG (76792 UT) eCW1 ([facility]) 200 ACTUAT Albuterol 0.09 MG/ACTUAT Mete red Dose Inhaler [ProAir] ProAir HFA 108 (90 Base) MCG/ACT ProAir HFA 108 (90 Base) MCG/ACT 02/09/2020 12:00:00 AM EDT 1.0 {puff_as_needed} active Pro Air HFA 108 (90 Base) MCG/ACT eCW1 ([facility]) Hydroxyzine Pamoate 25 MG Oral Capsule [Vistaril] Vistaril 2 5 MG Vistaril 25 MG 02/09/2020 12:00:00 AM EDT 1.0 {capsule_as_needed} active Vistaril 25 MG eCW1 ([facility]) Ergocalciferol 18868 UNT Oral Capsule [Drisdol] Drisdo l 1.25 MG (65476 UT) Drisdol 1.25 MG (24775 UT) 02/09/2020 12:00:00 AM EDT 1.0 {capsule} active Drisdol 1.25 MG (41391 UT) eCW1 ([facility]) Hydroxyzine Pamoate 25 MG Oral Capsule [Vistaril] Vistaril 2 5 MG Vistaril 25 MG 02/09/2020 12:00:00 AM EDT 1.0 {capsule_as_needed} active Vistaril 25 MG eCW1 ([facility]) Ergocalciferol 52994 UNT Oral Capsule [Drisdol] Drisdo l 1.25 MG (23585 UT) Drisdol 1.25 MG (40339 UT) 02/09/2020 12:00:00 AM EDT 1.0 {capsule} active Drisdol 1.25 MG (46853 UT) eCW1 ([facility]) 200 ACTUAT Albuterol 0.09 MG/ACTUAT Mete red Dose Inhaler [ProAir] ProAir HFA 108 (90 Base) MCG/ACT ProAir HFA 108 (90 Base) MCG/ACT 02/09/2020 12:00:00 AM EDT 1.0 {puff_as_needed} active Pro Air HFA 108 (90 Base) MCG/ACT eCW1 ([facility]) Hydroxyzine Pamoate 25 MG Oral Capsule [Vistaril] Vistaril 2 5 MG Vistaril 25 MG 02/09/2020 12:00:00 AM EDT 1.0 {capsule_as_needed} active Vistaril 25 MG eCW1 ([facility]) Hydroxyzine Pamoate 25 MG Oral Capsule [Vistaril] Vistaril 2 5 MG Vistaril 25 MG 02/09/2020 12:00:00 AM EDT 1.0 {capsule_as_needed} active Vistaril 25 MG eCW1 ([facility]) 200 ACTUAT Albuterol 0.09 MG/ACTUAT Mete red Dose Inhaler [ProAir] ProAir HFA 108 (90 Base) MCG/ACT ProAir HFA 108 (90 Base) MCG/ACT 02/09/2020 12:00:00 AM EDT 1.0 {puff_as_needed} active Pro Air HFA 108 (90 Base) MCG/ACT eCW1 ([facility]) 200 ACTUAT Albuterol 0.09 MG/ACTUAT Mete red Dose Inhaler [ProAir] ProAir HFA 108 (90 Base) MCG/ACT ProAir HFA 108 (90 Base) MCG/ACT 02/09/2020 12:00:00 AM EDT 1.0 {puff_as_needed} active Pro Air HFA 108 (90 Base) MCG/ACT eCW1 ([facility]) Hydroxyzine Pamoate 25 MG Oral Capsule [Vistaril] Vistaril 2 5 MG Vistaril 25 MG 02/09/2020 12:00:00 AM EDT 1.0 {capsule_as_needed} active Vistaril 25 MG eCW1 ([facility]) Ergocalciferol 12891 UNT Oral Capsule [Drisdol] Drisdo l 1.25 MG (58904 UT) Drisdol 1.25 MG (01718 UT) 02/09/2020 12:00:00 AM EDT 1.0 {capsule} active Drisdol 1.25 MG (48783 UT) eCW1 ([facility]) 200 ACTUAT Albuterol 0.09 MG/ACTUAT Mete red Dose Inhaler [ProAir] ProAir HFA 108 (90 Base) MCG/ACT ProAir HFA 108 (90 Base) MCG/ACT 02/09/2020 12:00:00 AM EDT 1.0 {puff_as_needed} active Pro Air HFA 108 (90 Base) MCG/ACT eCW1 ([facility]) Ergocalciferol 88500 UNT Oral Capsule [Drisdol] Drisdo l 1.25 MG (32082 UT) Drisdol 1.25 MG (16329 UT) 02/09/2020 12:00:00 AM EDT 1.0 {capsule} active Drisdol 1.25 MG (10190 UT) eCW1 ([facility]) Ergocalciferol 14997 UNT Oral Capsule [Drisdol] Drisdo l 1.25 MG (84017 UT) Drisdol 1.25 MG (59094 UT) 02/09/2020 12:00:00 AM EDT 1.0 {capsule} active Drisdol 1.25 MG (89917 UT) eCW1 ([facility]) Triamcinolone Acetonide 1 MG/ML Topical Cream Triamcin olone Acetonide 0.1 % Triamcinolone Acetonide 0.1 % 12/26/2019 12:00:00 AM EST 1.0 {appli cation} suspended Triamcinolone Acetonide 0 .1 % eCW1 ([facility]) 0.3 ML Epinephrine 1 MG/ML Auto-Injector [Epipen] EpiP en 2-Khari 0.3 MG/0.3ML EpiPen 2-Khari 0.3 MG/0.3ML 12/26/2019 12:00:00 AM EST active EpiPen 2-Khari 0.3 MG/0.3ML eCW1 ([facility]) 0.3 ML Epinephrine 1 MG/ML Auto-Injector [Epipen] EpiP en 2-Khari 0.3 MG/0.3ML EpiPen 2-Khari 0.3 MG/0.3ML 12/26/2019 12:00:00 AM EST active as directed eCW1 ([facility]) Triamcinolone Acetonide 1 MG/ML Topical Cream Triamcin olone Acetonide 0.1 % Triamcinolone Acetonide 0.1 % 12/26/2019 12:00:00 AM EST 1.0 {appli cation} suspended Triamcinolone Acetonide 0 .1 % eCW1 ([facility]) 0.3 ML Epinephrine 1 MG/ML Auto-Injector [Epipen] EpiP en 2-Khari 0.3 MG/0.3ML EpiPen 2-Khari 0.3 MG/0.3ML 12/26/2019 12:00:00 AM EST active EpiPen 2-Khari 0.3 MG/0.3ML eCW1 ([facility]) 0.3 ML Epinephrine 1 MG/ML Auto-Injector [Epipen] EpiP en 2-Khari 0.3 MG/0.3ML EpiPen 2-Khari 0.3 MG/0.3ML 12/26/2019 12:00:00 AM EST active EpiPen 2-Khari 0.3 MG/0.3ML eCW1 ([facility]) Triamcinolone Acetonide 1 MG/ML Topical Cream Triamcin olone Acetonide 0.1 % Triamcinolone Acetonide 0.1 % 12/26/2019 12:00:00 AM EST 1.0 {appli cation} suspended Triamcinolone Acetonide 0 .1 % eCW1 ([facility]) Loratadine 10 MG Oral Tablet [Claritin] Claritin 10 MG Yessy tin 10 MG 12/26/2019 12:00:00 AM EST active 1 table t eCW1 ([facility]) Triamcinolone Acetonide 1 MG/ML Topical Cream Triamcin olone Acetonide 0.1 % Triamcinolone Acetonide 0.1 % 12/26/2019 12:00:00 AM EST 1.0 {appli cation} suspended Triamcinolone Acetonide 0 .1 % eCW1 ([facility]) 0.3 ML Epinephrine 1 MG/ML Auto-Injector [Epipen] EpiP en 2-Khari 0.3 MG/0.3ML EpiPen 2-Khari 0.3 MG/0.3ML 12/26/2019 12:00:00 AM EST active EpiPen 2-Khari 0.3 MG/0.3ML eCW1 ([facility]) Loratadine 10 MG Oral Tablet [Claritin] Claritin 10 MG Yessy tin 10 MG 12/26/2019 12:00:00 AM EST suspended 1 ta blet eCW1 ([facility]) 0.3 ML Epinephrine 1 MG/ML Auto-Injector [Epipen] EpiP en 2-Khari 0.3 MG/0.3ML EpiPen 2-Khari 0.3 MG/0.3ML 12/26/2019 12:00:00 AM EST active EpiPen 2-Khari 0.3 MG/0.3ML eCW1 ([facility]) 0.3 ML Epinephrine 1 MG/ML Auto-Injector [Epipen] EpiP en 2-Khari 0.3 MG/0.3ML EpiPen 2-Khari 0.3 MG/0.3ML 12/26/2019 12:00:00 AM EST active EpiPen 2-Khari 0.3 MG/0.3ML eCW1 ([facility]) Triamcinolone Acetonide 1 MG/ML Topical Cream Triamcin olone Acetonide 0.1 % Triamcinolone Acetonide 0.1 % 12/26/2019 12:00:00 AM EST active 1 application eCW1 ([facility]) 0.3 ML Epinephrine 1 MG/ML Auto-Injector [Epipen] EpiP en 2-Khari 0.3 MG/0.3ML EpiPen 2-Khari 0.3 MG/0.3ML 12/26/2019 12:00:00 AM EST active as directed eCW1 ([facility]) Triamcinolone Acetonide 1 MG/ML Topical Cream Triamcin olone Acetonide 0.1 % Triamcinolone Acetonide 0.1 % 12/26/2019 12:00:00 AM EST 1.0 {appli cation} suspended Triamcinolone Acetonide 0 .1 % eCW1 ([facility]) Triamcinolone Acetonide 1 MG/ML Topical Cream Triamcin olone Acetonide 0.1 % Triamcinolone Acetonide 0.1 % 12/26/2019 12:00:00 AM EST 1.0 {appli cation} suspended Triamcinolone Acetonide 0 .1 % eCW1 ([facility]) Triamcinolone Acetonide 1 MG/ML Topical Cream Triamcin olone Acetonide 0.1 % Triamcinolone Acetonide 0.1 % 12/26/2019 12:00:00 AM EST active 1 application eCW1 ([facility]) Insurance Providers Payer name Policy type / Coverage type Policy ID Covered green party ID Covered green party's relationship to wilcox Policy [place] Plan Information 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 [id number] [id number] [place] [id number] SP [id number] [facility] [id number] SP [id number] [facility] [id number] SP [id number] MEDICAID M [id number] MEDICAID [id number] SP [id number] [facility] [id number] SP [id number] [facility] [id number] [id number] [place] [place] [id number] S [id number] SELF PAY ONLY [id number] SP [id number] [facility] HUMAN [id number] [facility] [id number] [facility] ARTHUR -O/P [id number] Problems, Conditions, and Diagnoses Code Display Name Description Problem Type Effective Dates Data Source(s) Z86.2 [id number] History of anemia Problem 09/08/2020 12:00:0 0 AM EDT eCW1 ([facility]) N80.9 Endometrioma Endometrioma Problem 06/11/2020 12:00:00 A M EDT eCW1 ([facility]) N80.9 Endometriosis Endometriosis Problem 06/11/2020 12:00:00 AM EDT eCW1 ([facility]) J45.20 [id number] Mild intermittent reactive airwa y disease without complication Problem 02/09/2020 12:00:00 AM EDT eCW1 ([facility]) J45.20 [id number] Mild intermittent reactive airwa y disease without complication Problem 02/09/2020 12:00:00 AM EDT eCW1 ([facility]) E55.9 [id number] Vitamin D deficiency Problem 02/06/2020 12:0 0:00 AM EDT eCW1 ([facility]) E55.9 [id number] Vitamin D deficiency Problem 02/06/2020 12:0 0:00 AM EDT eCW1 ([facility]) Z91.09 [id number] Environmental allergies Problem 12/26/2019 1 2:00:00 AM EST eCW1 ([facility]) F41.8 [id number] Anxiety with depression Problem 12/26/2019 1 2:00:00 AM EST eCW1 ([facility]) Z91.09 [id number] Environmental allergies Problem 12/26/2019 1 2:00:00 AM EST eCW1 ([facility]) F41.8 [id number] Anxiety with depression Problem 12/26/2019 1 2:00:00 AM EST eCW1 ([facility]) Surgeries/Procedures Procedure Description Date Indications Data Source(s) Injection, medroxyprogesterone acetate for contraceptive use , 150 mg 11/22/2020 12:00:00 AM EST eCW1 ([facility]) Injection, medroxyprogesterone acetate for contraceptive use , 150 mg 08/27/2020 12:00:00 AM EDT eCW1 ([facility]) Immunization: Flublok Quadrivalent (18 years & older) 0.5mL IM (Influenza) 08/25/2020 12:00:00 AM EDT eCW1 ([facility]) Injection, medroxyprogesterone acetate for contraceptive use , 150 mg 06/11/2020 12:00:00 AM EDT eCW1 ([facility]) URINE TEST 06/11/2020 12:00:00 AM EDT eCW1 ([facility]) Results ID Date Data Source [id number] 05/11/2020 09:55:00 AM EDT [facility] Name Value Range Interpretation Code Description Data Jocelynn rce(s) Supporting Document(s) SARS CORONAVIRUS 2 RNA [facility] This lab was ordered by [facility] and reported by [facility]. ID Date Data Source HEPATITIS BE ANTIGEN 12/12/2019 12:00:00 AM EST eCW1 (Count includes the [facility]) Name Value Range Interpretation Code Description Data Jocelynn rce(s) Supporting Document(s) Negative Negative HEPATITIS BE ANTIGEN eCW1 ([facility]) ID Date Data Source SYPHILIS ANTIBODY (RPR SCREEN) 12/12/2019 12:00:00 AM EST eC W1 ([facility]) Name Value Range Interpretation Code Description Data Jocelynn rce(s) Supporting Document(s) NONREACTIVE NONREACTIVE SYPHILIS eCW1 ([facility]) Procedure Social History Code Duration Value Status Description Data Source(s ) Smoking 11/25/2020 12:00:00 AM EST Patient has never smoked co mpleted Patient has never smoked MEDENT ([facility]) Vital Signs ID Date Data Source UNK Name Value Range Interpretation Code Description Data Source(s) Body mass index (BMI) [Ratio] 31.1 kg/m2 31.1 k g/m2 MEDENT ([facility]) Body height 65 [in_i] 65 [in_i] MEDENT ([facility]) 5'5" Body weight 187.00 [lb_av] 187.00 [lb_av] MEDEN T ([facility]) Body temperature 97.7 [degF] 97.7 [degF] MEDENT ([facility]) Oxygen saturation in Arterial blood by Pulse oximetry 98 % 98 % MEDENT ([facility]) Respiratory rate 18 /min 18 /min MEDENT ( [facility], [facility]) Heart rate 86 /min 86 /min MEDENT ([facility]) Diastolic blood pressure 70 mm[Hg] 70 mm[Hg] MEDENT ([facility], [facility]) Systolic blood pressure 115 mm[Hg] 115 mm[Hg] M EDENT ([facility], [facility]) Diastolic blood pressure 70 mm[Hg] 70 mm[Hg] eCW1 ([facility]) Systolic blood pressure 132 mm[Hg] 132 mm[Hg] e CW1 ([facility]) Body temperature 96.1 [degF] 96.1 [degF] eCW1 ( [facility]) Respiratory rate 18 /min 18 /min eCW1 ([facility]) Heart rate 89 /min 89 /min eCW1 ([facility]) Body mass index (BMI) [Ratio] 32.61 kg/m2 32.61 kg/m2 W1 ([facility]) Body height 65 [in_i] 65 [in_i] eCW1 ([facility]) Body weight 196 [lb_av] 196 [lb_av] eCW1 ([facility]) Diastolic blood pressure 74 mm[Hg] 74 mm[Hg] eCW1 ([facility]) Systolic blood pressure 120 mm[Hg] 120 mm[Hg] e CW1 ([facility]) Body temperature 97.1 [degF] 97.1 [degF] eCW1 ( [facility]) Respiratory rate 18 /min 18 /min eCW1 ([facility]) Heart rate 98 /min 98 /min eCW1 ([facility]) Body mass index (BMI) [Ratio] 30.75 kg/m2 30.75 kg/m2 W1 ([facility]) Body height 65 [in_i] 65 [in_i] eCW1 ([facility]) Body weight 184.8 [lb_av] 184.8 [lb_av] eCW1 ([facility]) Diastolic blood pressure 78 mm[Hg] 78 mm[Hg] eCW1 ([facility]) Systolic blood pressure 120 mm[Hg] 120 mm[Hg] e CW1 ([facility]) Body temperature 97.6 [degF] 97.6 [degF] eCW1 ( [facility]) Respiratory rate 18 /min 18 /min eCW1 ([facility]) Heart rate 85 /min 85 /min eCW1 ([facility]) Body mass index (BMI) [Ratio] 30.62 kg/m2 30.62 kg/m2 eCW1 ([facility]) Body height 65 [in_i] 65 [in_i] eCW1 ([facility]) Body weight 184 [lb_av] 184 [lb_av] eCW1 ([facility]) Diastolic blood pressure 68 mm[Hg] 68 mm[Hg] eCW1 ([facility]) Systolic blood pressure 118 mm[Hg] 118 mm[Hg] e CW1 ([facility]) Body mass index (BMI) [Ratio] 30.62 kg/m2 30.62 kg/m2 eCW1 ([facility]) Body height 65 [in_i] 65 [in_i] eCW1 ([facility]) Body weight 184 [lb_av] 184 [lb_av] eCW1 ([facility]) Diastolic blood pressure 78 mm[Hg] 78 mm[Hg] eCW1 ([facility]) Systolic blood pressure 118 mm[Hg] 118 mm[Hg] e CW1 ([facility]) Body mass index (BMI) [Ratio] 29.82 kg/m2 29.82 kg/m2 eCW1 ([facility]) Body height 65 [in_us] 65 [in_us] eCW1 ([facility] [place] Body weight Measured 179.2 [lb_av] 179.2 [lb_av ] eCW1 ([facility]) Diastolic blood pressure 64 mm[Hg] 64 mm[Hg] eCW1 ([facility]) Systolic blood pressure 100 mm[Hg] 100 mm[Hg] e CW1 ([facility]) Body temperature 97.1 [degF] 97.1 [degF] eCW1 ( [facility]) Respiratory rate 18 /min 18 /min eCW1 ([facility]) Heart rate 106 /min 106 /min eCW1 ([facility]) Body mass index (BMI) [Ratio] 28.95 kg/m2 28.95 kg/m2 eCW1 ([facility]) Body height 65 [in_us] 65 [in_us] eCW1 ([facility]) Body weight Measured 174 [lb_av] 174 [lb_av] eC W1 ([facility]) Diastolic blood pressure 78 mm[Hg] 78 mm[Hg] eCW1 ([facility]) Systolic blood pressure 118 mm[Hg] 118 mm[Hg] e CW1 ([facility]) Body mass index (BMI) [Ratio] 28.89 kg/m2 28.89 kg/m2 eCW1 ([facility]) Body height 65 [in_us] 65 [in_us] eCW1 ([facility]) Body weight Measured 173.6 [lb_av] 173.6 [lb_av ] eCW1 ([facility]) Patient Treatment Plan of Care Planned Activity Planned Date Details Description Data Source (s) 24 HR venlafaxine 37.5 MG Extended Release Oral Capsul e [Effexor] 11/24/2020 12:00:00 AM EST eCW1 ([facility]) Hydroxyzine Pamoate 25 MG Oral Capsule [Vistaril] 02/09/2020 12: 00:00 AM EDT eCW1 ([facility]) 200 ACTUAT Albuterol 0.09 MG/ACTUAT Metered Dose Inhal er [ProAir] 02/09/2020 12:00:00 AM EDT eCW1 ([facility]) 0.3 ML Epinephrine 1 MG/ML Auto-Injector [Epipen] 12/26/2019 12: 00:00 AM EST eCW1 ([facility]) Loratadine 10 MG Oral Tablet [Claritin] 12/26/2019 12:00:00 AM EST eCW1 ([facility]) Triamcinolone Acetonide 1 MG/ML Topical Cream 12/26/2019 12:00:00 A M EST eCW1 ([facility])
--- OUTSIDE RECORDS SUMMARY | 2021-01-08 11:37 | CCD ---
Author Author [facility] Organization [facility] Address Unknown Phone Unavailable Care Team Providers Care Environmental Construction Engineer Name Role Phone Mg Muriel Unavailable PROBLEMS Type Condition ICD9-CM Code [id number] Code Onset Dates Condition S tatus SNOMED Code Notes Problem Anxiety with depression F41.8 Active 54294678 6 Problem Endometriosis N80.9 Active 414434554 Problem History of anemia Z86.2 Active 640919705 Problem Environmental allergies Z91.09 Active 97395914 7 Problem Vitamin D deficiency E55.9 Active 90195246 Problem Mild intermittent reactive airway disease without comp lication J45.20 Active 129162326 Problem Endometrioma N80.9 Active 540180835 ALLERGIES Allergen (clinical drug ingredient) Drug/Non Drug Allergy do cumented on EMR Reaction Allergy Type Onset Date Status Sulfa (for allergy use only) Hives Drug Allergy Active ENCOUNTERS from 1996 to 2020-10-14 Encounter Location Date Provider Diagnosis [facility] [address] [place] [id number] May, Muriel Holliday Encounter for surgic al aftercare following surgery on the genitourinary system Z48.816 and Initiation of Depo Provera Z30.013 IMMUNIZATIONS Vaccine Route Administration Date Status Influenza (18 yrs & older) Flublok IM Intramuscular Aug 25, 2020 Administered Depo-Provera 150mg/1mL (Medroxy-Progestrone Acetate) IM Intr amuscular Aug 27, 2020 Administered Depo-Provera 150mg/1mL (Medroxy-Progestrone Acetate) IM Intr amuscular June 11, 2020 Administered SOCIAL HISTORY Sex Assigned At : Social History Observation Description Sex Assigned At Unknown Education: Question Answer Notes Level of Education: College Audit Question Answer Notes Interpretation: Alcohol Education Total Score: 0 Language: Question Answer Notes Languages spoken: Faroese Christian: Question Answer Notes Christian 34 None Sexual Hx: Question Answer Notes Had sex in the last 12 months (vaginal, oral, or anal)? No LMP: 12/01/2019 Have you ever had an STD? No Drug and Alcohol Question Answer Notes Total Score: 0 Interpretation: No problems reported Alcohol Screening: Question Answer Notes Did you have a drink containing alcohol in the past year? No Points 0 Interpretation Negative REASON FOR REFERRAL No Information VITAL SIGNS Weight 184 lbs May, Height 65 in May, BMI 30.62 kg/m2 May, Blood pressure systolic 118 mm Hg May, Blood pressure diastolic 68 mm Hg May, MEDICATIONS Medication SIG (Take, Route, Frequency, Duration) Notes Start Da te End Date Status Iron 325 (65 Fe) MG 1 tablet Orally Once a day Active EpiPen 2-Khari 0.3 MG/0.3ML as directed Injection once for 1 days Dec, Active Triamcinolone Acetonide 0.1 % 1 application Externally Two times a Week for 30 Days Dec, Not-Taking Vistaril 25 MG 1 capsule as needed Orally every 8 hrs for 30 da y(s) Jan, Active Drisdol 1.25 MG (89098 UT) 1 capsule Orally weekly for 90 day(s) Jan, Active Depo-Provera 150 MG/ML 1 ml Intramuscular Active Claritin 10 MG 1 tablet Orally Once a day Active Ibuprofen 800 MG 1 tablet with food or milk as needed Ora lly Three times a day Active ProAir HFA 108 (90 Base) MCG/ACT 1 puff as needed Inha lation every 4 hrs for 30 Days Jan, Active PROCEDURES Procedure Date Ordered Result Body Site URINE TEST 2020-06-11 Negative Medication: Depo-Provera 150mg/1mL IM (Medroxyprogesterone A cetate) 2020-06-11 N/A RESULTS No Results REASON FOR VISIT 3 WEEK POST OP MEDICAL (GENERAL) HISTORY Type Description Date Medical History eczema Medical History anxiety with depression Medical History environmental allergies Medical History Vitamin D Deficiency Medical History menorrhagia, Depo shots for contraceptio n Medical History endometriosis Surgical History Tympanostomy Surgical History Nexplanon removal Surgical History cystectomy 2019 Hospitalization History surgery Goals Section No Information Health Concerns No Information MEDICAL EQUIPMENT No Information MENTAL STATUS No Information FUNCTIONAL STATUS No Information ASSESSMENTS Encounter Date Diagnosis Assessment Notes Treatment Notes Treatm ent Clinical Notes May, Encounter for surgical after care following surgery on the genitourinary system (ICD-10 - Z48.816) May, Initiation of Depo Provera (ICD-10 - Z30.013) PLAN OF TREATMENT Next Appt Details 3 Months Reason:depo Provider Name:Ayla Barros, 2020-11-15 09:00:00 AM, [address] [place], [address], Follow Up:3 Monthsdepo Insurance Providers Payer Name Payer Address Payer Phone Insured Name Patient Relati onship to Insured Coverage Start Date Coverage End Date MEDICAID [id number] [address] [facility] [id number] 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
--- OUTSIDE RECORDS SUMMARY | 2021-01-08 11:37 | CCD ---
Author Author [facility] Organization [facility] Address Unknown Phone Unavailable Care Team Providers Care Internet Application Developer Name Role Phone Ayla Barros Unavailable PROBLEMS Type Condition ICD9-CM Code NZZ55-FF Code Onset Dates Condition S tatus SNOMED Code Notes Problem Anxiety with depression F41.8 Active 80421817 6 Problem Endometriosis N80.9 Active 698008458 Problem History of anemia Z86.2 Active 568592354 Problem Environmental allergies Z91.09 Active 97927703 7 Problem Vitamin D deficiency E55.9 Active 58447630 Problem Mild intermittent reactive airway disease without comp lication J45.20 Active 044749426 Problem Endometrioma N80.9 Active 720516992 ALLERGIES Allergen (clinical drug ingredient) Drug/Non Drug Allergy do cumented on EMR Reaction Allergy Type Onset Date Status Sulfa (for allergy use only) Hives Drug Allergy Active ENCOUNTERS from 1996 to 2020-11-22 Encounter Location Date Provider Diagnosis [facility] [address] [place] [id number] Nov, Ayla Barros Encounter for Depo-P rovera contraception Z30.42 IMMUNIZATIONS Vaccine Route Administration Date Status Influenza (18 yrs & older) Flublok IM Intramuscular Aug 25, 2020 Administered Depo-Provera 150mg/1mL (Medroxy-Progestrone Acetate) IM Intr amuscular Nov 22, 2020 Administered Depo-Provera 150mg/1mL (Medroxy-Progestrone Acetate) IM Intr amuscular Aug 27, 2020 Administered Depo-Provera 150mg/1mL (Medroxy-Progestrone Acetate) IM Intr amuscular June 11, 2020 Administered SOCIAL HISTORY Sex Assigned At : Social History Observation Description Sex Assigned At Unknown Education: Question Answer Notes Level of Education: College Audit Question Answer Notes Total Score: 0 Interpretation: Alcohol Education Language: Question Answer Notes Languages spoken: Nepali Yazidi: Question Answer Notes Yazidi 33 None Sexual Hx: Question Answer Notes [...] REASON FOR REFERRAL No Information VITAL SIGNS No information MEDICATIONS Medication SIG (Take, Route, Frequency, Duration) [...] da y(s) Jan, Active Drisdol 1.25 MG (63740 UT) 1 capsule Orally weekly for 90 [...] hrs for 30 Days Jan, Active PROCEDURES from 1996 to 2020-11-22 Procedure Date Ordered Result Body Site Medication: Depo-Provera 150mg/1mL IM (Medroxyprogesterone A cetate) 2020-11-22 N/A RESULTS No Results REASON FOR VISIT DEPO MEDICAL (GENERAL) HISTORY Type Description Date Medical [...] Notes Treatment Notes Treatm ent Clinical Notes Nov, Encounter for Depo-Provera contraception (ICD-10 - Z30.42) PLAN OF TREATMENT Next Appt Details Provider Name:Eva Klein, 2020-11-24 04:15:00 PM, [address], [place], [address], Provider Name:Eveline Henry, 2021-02-16 0 9:00:00 AM, [address] [place], [address], Insurance Providers Payer Name Payer Address Payer Phone Insured Name Patient Relati onship to Insured Coverage Start Date Coverage End Date [place] [id number] [address] [facility] [address] [phone] LEÓN MOLINA MEDICAID [employer] [address] [facility] [address] 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
--- OUTSIDE RECORDS SUMMARY | 2021-01-08 11:37 | CCD | Continuity of Care Document ---
Author Author Dariela LORENZANA Organization Unknown Address [address] [place] [address] [place] [address] Phone [phone] Care Team Providers Care Wash House Worker Name Role Phone [facility]M [phone] Problems Description No Information Available Social History Type Date Description Comments Sex Unknown ETOH Use Denies alcohol use Tobacco Use Start: Unknown Patient has never smoked Smoking Status Reviewed: 11/25/20 Patient has never smoked Allergies, Adverse Reactions, Alerts Active Allergies Reaction Severity Comments Date Sulfa 08/01/2018 Medications Active Medications SIG Qnty Indications Ordering Provide r Date Trimethoprim Sulfate/Polymyxin B Sulfate 99552-1.1Unit/ML-% Solution 1 drop in both eyes four [...] Code Status Date Vaccine Reaction Lot # [id number] Given 08/01/2018 PPD- TB Intradermal Test neg ative PPD 08/04/18- 0 mm of induration Laura NORMAN [id number] Vital Signs Date Vital Result Comment 11/25/2020 [...] Medical Devices Description No Information Available Encounters Description No Information Available Assessments Date Code Description Provider 11/25/2020 H10.31 Unspecified acute conjunctivitis , right eye Richelle Lorenzana NP Plan of Treatment 11/25/2020 - Richelle Lorenzana NP* H10.31 Unspecified acute conjunctivitis, right eye* New Medication:* Trimethoprim Sulfate/Polymyxin B Sulfate 40758-9.1 Unit/ML-% - 1 drop in both eyes four times daily x5-7 days * Comments:* use abx eye gtt's as directedcontinue OTC eye gtt's for sx reliefwarm compressf/u PRN or with PCPpatient v/u & agrees to plan Functional Status Description No Information Available Mental Status Description No Information Available Referrals Description No Information Available
--- OUTSIDE RECORDS SUMMARY | 2021-01-08 11:37 | CCD ---
Author Author [facility] Organization [facility] Address Unknown Phone Unavailable Care Team Providers Care Cellophaner Name Role Phone Latoya Eva Unavailable PROBLEMS Type Condition ICD9-CM Code [id number] Code Onset Dates Condition S tatus SNOMED Code Notes Problem Anxiety with depression F41.8 Active 88650097 6 Problem Endometriosis N80.9 Active 358027440 Problem History of anemia Z86.2 Active 907372488 Problem Environmental allergies Z91.09 Active 45518051 7 Problem Vitamin D deficiency E55.9 Active 07691310 Problem Mild intermittent reactive airway disease without comp lication J45.20 Active 780449663 Problem Endometrioma N80.9 Active 717204773 ALLERGIES Allergen (clinical drug ingredient) Drug/Non Drug Allergy do cumented on EMR Reaction Allergy Type Onset Date Status Sulfa (for allergy use only) Hives Drug Allergy Active ENCOUNTERS from 1996 to 2020-12-09 Encounter Location Date Provider Diagnosis [address] [place] [address] Nov, 21 Eva Latoya Anxiety with depression F41.8 ; Environm ental allergies Z91.09 ; Mild intermittent reactive airway disease without complication J45.20 and Anemia, unspecified type D64.9 IMMUNIZATIONS Vaccine Route Administration Date Status Influenza [...] Education Language: Question Answer Notes Languages spoken: Palauan Anabaptist: Question Answer Notes Anabaptist 33 None Sexual Hx: Question Answer Notes [...] FOR REFERRAL No Information VITAL SIGNS Weight 196 lbs Nov, Height 65 in Nov, BMI 32.61 kg/m2 Nov, Heart Rate 89 /min Nov, Respiratory Rate 18 /min Nov, Temperature 96.1 degrees Fahrenheit Nov, Oximetry 99 Nov, Blood pressure systolic 132 mm Hg Nov, Blood pressure diastolic 70 mm Hg Nov, MEDICATIONS Medication SIG (Take, Route, Frequency, Duration) Notes Start Da te End Date Status Iron 325 (65 Fe) MG 1 tablet Orally Once a day for 30 days Active Claritin 10 MG 1 tablet Orally Once a day for 30 days Active ProAir HFA 108 (90 Base) MCG/ACT 1 puff as needed Inha lation every 4 hrs for 30 days Jan, Active Triamcinolone Acetonide 0.1 % 1 application Externally Two times a Week for 30 Days Dec, Not-Taking Effexor XR 37.5 MG 1 capsule with food Orally Once a day for 30 day(s) Nov, Active EpiPen 2-Khari 0.3 MG/0.3ML as directed Injection once for 1 days Dec, Active Depo-Provera 150 MG/ML 1 ml Intramuscular Active Drisdol 1.25 MG (51657 UT) 1 capsule Orally weekly for 90 day(s) Jan, Active Ibuprofen 800 MG 1 tablet with food or milk as needed Ora lly Three times a day Active Vistaril 25 MG 1 capsule as needed Orally every 8 hrs for 30 da ys Jan, Active PROCEDURES No Information RESULTS No Results REASON FOR VISIT wants depression med MEDICAL (GENERAL) HISTORY Type Description Date Medical [...] Treatment Notes Treatm ent Clinical Notes Nov, Anxiety with depression (ICD-10 - F41.8) Discussed risks and benefits of medication, and she agreed to try Effexor Nov, Environmental allergies (ICD-10 - Z91.09) Medication refilled per patient request. Nov, Mild intermittent reactive a irway disease without complication (ICD-10 - J45.20) Medication refilled per patient request. Nov, Anemia, unspecified type (ICD-10 - D64.9) Medication refilled per patient request. PLAN OF TREATMENT Medication Medication Name Sig Start Date Stop Date Effexor XR 37.5 MG 1 capsule with food Orally Once a day fo r 30 day(s) Nov, Iron 325 (65 Fe) MG 1 tablet Orally Once a day for 30 days Claritin 10 MG 1 tablet Orally Once a day for 30 days Vistaril 25 MG 1 capsule as needed Orally every 8 hrs for 30 da ys Jan, ProAir HFA 108 (90 Base) MCG/ACT 1 puff as needed Inha lation every 4 hrs for 30 days Jan, Treatment Notes Assessment Notes Clinical Notes Anxiety with depression Discussed risks and benefits of medication, and she agreed to try Effexor Environmental allergies Medication refil led per patient request. Mild intermittent reactive airway disease without complicati on Medication refilled per patient request. Anemia, unspecified type Medication refi lled per patient request. Next Appt Details 4 Weeks Reason:f/u mood Provider Name:Eva Klein, 2020-12-22 02:15:00 PM, [address], [place], [address], Provider Name:Eveline Henry, 2021-02-16 0 9:00:00 AM, [address] [place], [address], Follow Up:4 Weeksf/u mood Insurance Providers Payer Name Payer Address Payer Phone Insured Name Patient Relati onship to Insured Coverage Start Date Coverage End Date MEDICAID Before the [employer] [address] [facility] [id number] SINC[address] CARTER BS [facility] [address] [facility] [address] LEÓN MOLINA
[2021-01-08 12:09] LABS: BASO # 0.1 10^3/uL (0.0-0.2); BASO % 0.8 % (0.0-1.0); EOS # 0.1 10^3/uL (0.0-0.5); EOS % 0.9 % (0.0-3.0); HEMATOCRIT 41.9 % (36.0-47.0); HEMOGLOBIN 13.7 g/dl (12.0-15.5); LYMPH # 1.6 10^3/uL (1.5-5.0); LYMPH % 19.3 % (24.0-44.0); MEAN CORPUSCULAR HEMOGLOBIN 29.8 pg (27.0-33.0); MEAN CORPUSCULAR HGB CONC 32.7 g/dl (32.0-36.5); MEAN CORPUSCULAR VOLUME 91.1 fl (80.0-96.0); MONO # 0.8 10^3/uL (0.0-0.8); MONO % 9.2 % (2.0-8.0); NEUTROPHILS # 5.9 10^3/uL (1.5-8.5); NEUTROPHILS % 69.3 % (36.0-66.0); PLATELET COUNT, AUTOMATED 245 10^3/uL (150-450); WHITE BLOOD COUNT 8.5 10^3/uL (4.0-10.0)
[2021-01-08] MEDS ORDERED: ISOVUE-370 76% 100ML VIAL As Ordered ONE (12:26)
[2021-01-08] MEDS ORDERED: KETOROLAC 30 MG/ML 1ML VIAL IV ONE (12:30)
[2021-01-08] MEDS ORDERED: ONDANSETRON 4MG/2ML VIAL IV ONE (12:30)
[2021-01-08 12:42] LABS: ALBUMIN 3.8 GM/DL (3.2-5.2); BILIRUBIN,DIRECT 0.3 MG/DL (0.0-0.2); BILIRUBIN,TOTAL 1.2 MG/DL (0.2-1.0); TOTAL PROTEIN 7.3 GM/DL (6.4-8.2)
[2021-01-08 12:55] VITALS: BP 104/54
--- NOTE | 2021-01-08 13:10 | REP ---
INDICATION: abdominal pain/ suspect appendicitis. COMPARISON: Bone windows show lumbar, lower thoracic vertebral bodies, their posterior elements and visualized lower ribs all intact. Pelvic ultrasound 04/06/2020; CT 08/07/2019 TECHNIQUE: Bolus 100 mL Isovue 370 scanning through the abdomen and pelvis with coronal and sagittal reconstructions. FINDINGS: CT abdomen: The lung bases are clear. The heart is not enlarged there is no pericardial thickening or effusion. No hiatal hernia. Visualized stomach unremarkable. The liver, spleen, gallbladder, pancreas, adrenal glands and kidneys show no acute abnormality. The aorta is unremarkable there is no periaortic, retroperitoneal or mesenteric pathologic sized lymph adenopathy. Abdominal portion of the colon shows a cecum without inflammatory change adjacent. Terminal ileum unremarkable. Appendix is seen and without a focal lesion. The right colon, flexures, transverse and left colon in the abdomen proper unremarkable. Small bowel loops were partially fluid-filled but without abnormal dilatation to suggest ileus or obstruction. There are a few small mesenteric nodes in the pericecal region without inflammatory changes in the fat. The lung window review of all images show no sign of perforation or free air in the abdomen or pelvis. No ascites. CT pelvis: The bony sacrum, SI joints pelvis and hips are normal. The distal left colon, sigmoid and rectum are without acute finding. Uterus is anteverted. Appears to be a complex right ovarian cyst 5 x 5 by 5.4 cm abutting the lateral aspect of the uterus and extending upwards a toward but not reaching the appendix or cecum. Left ovary is 3 x 3.3 x 2.1 cm with more homogeneous appearance. No pelvic free fluid, adenopathy or mass. There are some infiltrative changes adjacent to the the right ovary which could be inflammatory. No ventral or inguinal hernia nor pathologic sized inguinal adenopathy. The distal left colon, sigmoid and rectum are intact. IMPRESSION: 1. No CT evidence of appendicitis. The appendix is seen without inflammatory changes there are just a few pericecal nodes of normal size and no edema in the adjacent fat. No pending coal if. 2. The colon and small bowel loops were grossly unremarkable. 3. Solid organs in the upper abdomen are unremarkable. No renal, ureteral or bladder stone nor hydronephrosis. 4. 5.4 by 5 x 5 cm complex cyst the right ovary and 3 point 3 x 2.1 by 3 cm left ovary with more homogeneous appearance. Some mild infiltration of fat adjacent the right ovary may reflect inflammatory change. No pelvic free fluid, generalized ascites or evidence for abscess. <Electronically signed by Cullen Reis > 01/08/21 1741
[2021-01-08] MEDS ORDERED: KETO10TAB PO (13:23)
--- OUTSIDE RECORDS SUMMARY | 2021-01-08 13:58 | CCD ---
Author Author [facility] Organization [facility] Address Unknown Phone Unavailable Care Team Providers Care Dark Room Attendant Name Role Phone Patterson, Richelle ADVERTISING ACCOUNT REPRESENTATIVE Unavailable Unavailable Patterson, Richelle ADVERTISING ACCOUNT REPRESENTATIVE Unavailable Unavailable Patterson, Richelle ADVERTISING ACCOUNT REPRESENTATIVE Unavailable Unavailable Patterson, Richelle ADVERTISING ACCOUNT REPRESENTATIVE Unavailable Unavailable Patterson, Richelle ADVERTISING ACCOUNT REPRESENTATIVE Unavailable Unavailable Patterson, Richelle ADVERTISING ACCOUNT REPRESENTATIVE Unavailable Unavailable Patterson, Richelle ADVERTISING ACCOUNT REPRESENTATIVE Unavailable Unavailable Patterson, Richelle ADVERTISING ACCOUNT REPRESENTATIVE Unavailable Unavailable Patterson, Richelle ADVERTISING ACCOUNT REPRESENTATIVE Unavailable Unavailable Patterson, Richelle ADVERTISING ACCOUNT REPRESENTATIVE Unavailable Unavailable Patterson, Richelle ADVERTISING ACCOUNT REPRESENTATIVE Unavailable Unavailable Re-disclosure Warning The records that [...] is protected by Article 27-F of the [facility] Public Health law. If you continue you may have access to information: Regarding HIV / AIDS; Provided by facilities licensed or operated by the [facility] Office of Mental Health; or Provided by the [facility] Office for People With Developmental Disabilities. If such information is present, then the following [facility] mandated warning applies: This information has [...] law may result in a fine or retirement sentence or both. A general authorization for the release of medical or other information is NOT sufficient authorization for further disc losure. Allergies and Adverse Reactions Type Description Substance Reaction Status Data Source(s ) Sulfa (for allergy use only) Sulfa (for allergy use only) [place]by lfa (for allergy use only) Hives Active eCW1 ([facility]) Sulfa (for allergy use only) Sulfa (for allergy use only) [place] lfa (for allergy use only) Hives Active eCW1 ([facility]) Sulfa (for allergy use only) Sulfa (for allergy use only) [place] lfa (for allergy use only) Hives Active W1 ([facility]) Encounters Encounter Providers Location Date Indications Data Source(s ) Outpatient Attender: Richelle shay 11/25/2020 02:30:00 PM EST MEDENT ([facility]) Outpatient [address] [facility] [address] 11/24/2020 12:00:00 AM EST eCW1 ([facility]) ( [place]) [facility] Nurse Visit [address] [place] [address] 11/22/2020 12:00:00 AM EST eCW1 ([facility]) Outpatient [address] [facility] [address] 09/08/2020 12:00:00 AM EDT eCW1 ([facility]) ( [place]) enter Nurse Visit [address] [place] [address] 08/27/2020 12:00:00 AM EDT eCW1 ([facility]) Outpatient [address] [facility] [address] 08/25/2020 12:00:00 AM EDT eCW1 ([facility]) ( PO) [facility] Post Op [address] [place] [address] 06/11/2020 12:00:00 AM EDT eCW1 ([facility]) [facility] [address] [place] [address] 06/01/2020 12:00:00 AM EDT eCW1 ([facility]) [facility] [address] [place] [address] 05/14/2020 12:00:00 AM EDT eCW1 ([facility]) [facility] [address] [place] [address] 04/28/2020 12:00:00 AM EDT eCW1 ([facility]) [facility] [address] [place] [address] 04/08/2020 12:00:00 AM EDT eCW1 ([facility]) [facility] [address] [place] [address] 03/25/2020 12:00:00 AM EDT eCW1 ([facility]) [facility] Price [address] [facility] [address] 02/09/2020 12:00:00 AM EDT eCW1 ([facility]) [facility] [address] [place] [address] 02/09/2020 12:00:00 AM EDT eCW1 ([facility]) [facility] [address] [place] [address] 02/02/2020 12:00:00 AM EDT eCW1 ([facility]) Outpatient 01/22/2020 02:30:00 PM EST [facility] [address] [place] [address] 01/12/2020 12:00:00 AM EST eCW1 ([facility]) [facility] Julio Cesar Hubbard [address] [place] [address] 12/26/2019 12:00:00 AM EST eCW1 ([facility]) [facility] [address] [place] [address] 12/12/2019 12:00:00 AM EST eCW1 ([facility]) Immunizations Vaccine Date Status Description Data Source(s) Depo-Provera 150mg/1mL (Medroxy-Progestrone Acetate) 021 09:16:00 AM EST completed eCW1 ([facility]) Depo-Provera 150mg/1mL (Medroxy-Progestrone Acetate) 021 09:16:00 AM EST completed eCW1 ([facility]) Depo-Provera 150mg/1mL (Medroxy-Progestrone Acetate) 020 09:15:00 AM EDT completed eCW1 ([facility]) Depo-Provera 150mg/1mL (Medroxy-Progestrone Acetate) 09:15:00 AM EDT completed eCW1 ([facility]) Depo-Provera 150mg/1mL (Medroxy-Progestrone Acetate) 09:15:00 AM EDT completed eCW1 ([facility]) Depo-Provera 150mg/1mL (Medroxy-Progestrone Acetate) 09:15:00 AM EDT completed eCW1 ([facility]) Depo-Provera 150mg/1mL (Medroxy-Progestrone Acetate) 09:15:00 AM EDT completed eCW1 ([facility]) Depo-Provera 150mg/1mL (Medroxy-Progestrone Acetate) 09:15:00 AM EDT completed eCW1 ([facility]) influenza, recombinant, quadrIvalent,injectable, prese rvative free 08/25/2020 05:03:00 PM EDT completed eCW1 ([facility]) influenza, recombinant, quadrIvalent,injectable, prese rvative free 08/25/2020 05:03:00 PM EDT completed eCW1 ([facility]) influenza, recombinant, quadrIvalent,injectable, prese rvative free 08/25/2020 05:03:00 PM EDT completed eCW1 ([facility]) influenza, recombinant, quadrIvalent,injectable, prese rvative free 08/25/2020 05:03:00 PM EDT completed eCW1 ([facility]) influenza, recombinant, quadrIvalent,injectable, prese rvative free 08/25/2020 05:03:00 PM EDT completed eCW1 ([facility]) influenza, recombinant, quadrIvalent,injectable, prese rvative free 08/25/2020 05:03:00 PM EDT completed eCW1 ([facility]) Depo-Provera 150mg/1mL (Medroxy-Progestrone Acetate) 01:04:00 PM EDT completed eCW1 ([facility]) Depo-Provera 150mg/1mL (Medroxy-Progestrone Acetate) 01:04:00 PM EDT completed eCW1 ([facility]) Depo-Provera 150mg/1mL (Medroxy-Progestrone Acetate) 01:04:00 PM EDT completed eCW1 ([facility]) Depo-Provera 150mg/1mL (Medroxy-Progestrone Acetate) 01:04:00 PM EDT completed eCW1 ([facility]) Depo-Provera 150mg/1mL (Medroxy-Progestrone Acetate) 01:04:00 PM EDT completed eCW1 ([facility]) Depo-Provera 150mg/1mL (Medroxy-Progestrone Acetate) 01:04:00 PM EDT completed eCW1 ([facility]) Medications Medication Brand Name Start Date Product Form Dose Route Admi nistrative Instructions Pharmacy Instructions Status Indications Reaction Description Data Source(s) Polymyxin B 50879 UNT/ML / Trimethoprim 1 MG/ML Ophtha lmic Solution Trimethoprim Sulfate/Polymyxin B Sulfate 11/25/2020 12:00:00 AM EST OPHTH ALMIC active MEDENT ([facility]) 24 HR venlafaxine 37.5 MG Extended Relea se Oral Capsule [Effexor] Effexor XR 37.5 MG Effexor XR 37.5 MG 11/24/2020 12:00:00 AM EST 1.0 {cap sule_with_food} active Effexor XR 37.5 MG e CW1 ([facility]) 200 ACTUAT Albuterol 0.09 MG/ACTUAT Mete red Dose Inhaler [ProAir] ProAir HFA 108 (90 Base) MCG/ACT ProAir HFA 108 (90 Base) MCG/ACT 02/09/2020 12:00:00 AM EDT 1.0 {puff_as_needed} active Pro Air HFA 108 (90 Base) MCG/ACT eCW1 ([facility]) Hydroxyzine Pamoate 25 MG Oral Capsule [Vistaril] Vistaril 2 5 MG Vistaril 25 MG 02/09/2020 12:00:00 AM EDT 1.0 {capsule_as_needed} active Vistaril 25 MG eCW1 ([facility]) Ergocalciferol 63625 UNT Oral Capsule [Drisdol] Drisdo l 1.25 MG (57263 UT) Drisdol 1.25 MG (89888 UT) 02/09/2020 12:00:00 AM EDT 1.0 {capsule} active Drisdol 1.25 MG (52759 UT) eCW1 ([facility]) 200 ACTUAT Albuterol 0.09 MG/ACTUAT Mete red Dose Inhaler [ProAir] ProAir HFA 108 (90 Base) MCG/ACT ProAir HFA 108 (90 Base) MCG/ACT 02/09/2020 12:00:00 AM EDT 1.0 {puff_as_needed} active Pro Air HFA 108 (90 Base) MCG/ACT eCW1 ([facility]) Hydroxyzine Pamoate 25 MG Oral Capsule [Vistaril] Vistaril 2 5 MG Vistaril 25 MG 02/09/2020 12:00:00 AM EDT 1.0 {capsule_as_needed} active Vistaril 25 MG eCW1 ([facility]) Ergocalciferol 50451 UNT Oral Capsule [Drisdol] Drisdo l 1.25 MG (15860 UT) Drisdol 1.25 MG (98492 UT) 02/09/2020 12:00:00 AM EDT 1.0 {capsule} active Drisdol 1.25 MG (69513 UT) eCW1 ([facility]) Hydroxyzine Pamoate 25 MG Oral Capsule [Vistaril] Vistaril 2 5 MG Vistaril 25 MG 02/09/2020 12:00:00 AM EDT 1.0 {capsule_as_needed} active Vistaril 25 MG eCW1 ([facility]) Ergocalciferol 84201 UNT Oral Capsule [Drisdol] Drisdo l 1.25 MG (60158 UT) Drisdol 1.25 MG (74261 UT) 02/09/2020 12:00:00 AM EDT 1.0 {capsule} active Drisdol 1.25 MG (93055 UT) eCW1 ([facility]) 200 ACTUAT Albuterol 0.09 MG/ACTUAT Mete red Dose Inhaler [ProAir] ProAir HFA 108 (90 Base) MCG/ACT ProAir HFA 108 (90 Base) MCG/ACT 02/09/2020 12:00:00 AM EDT 1.0 {puff_as_needed} active Pro Air HFA 108 (90 Base) MCG/ACT eCW1 ([facility]) Hydroxyzine Pamoate 25 MG Oral Capsule [Vistaril] Vistaril 2 5 MG Vistaril 25 MG 02/09/2020 12:00:00 AM EDT 1.0 {capsule_as_needed} active Vistaril 25 MG eCW1 ([facility]) Hydroxyzine Pamoate 25 MG Oral Capsule [Vistaril] Vistaril 2 5 MG Vistaril 25 MG 02/09/2020 12:00:00 AM EDT 1.0 {capsule_as_needed} active Vistaril 25 MG eCW1 ([facility]) 200 ACTUAT Albuterol 0.09 MG/ACTUAT Mete red Dose Inhaler [ProAir] ProAir HFA 108 (90 Base) MCG/ACT ProAir HFA 108 (90 Base) MCG/ACT 02/09/2020 12:00:00 AM EDT 1.0 {puff_as_needed} active Pro Air HFA 108 (90 Base) MCG/ACT eCW1 ([facility]) 200 ACTUAT Albuterol 0.09 MG/ACTUAT Mete red Dose Inhaler [ProAir] ProAir HFA 108 (90 Base) MCG/ACT ProAir HFA 108 (90 Base) MCG/ACT 02/09/2020 12:00:00 AM EDT 1.0 {puff_as_needed} active Pro Air HFA 108 (90 Base) MCG/ACT eCW1 ([facility]) Hydroxyzine Pamoate 25 MG Oral Capsule [Vistaril] Vistaril 2 5 MG Vistaril 25 MG 02/09/2020 12:00:00 AM EDT 1.0 {capsule_as_needed} active Vistaril 25 MG eCW1 ([facility]) Ergocalciferol 52378 UNT Oral Capsule [Drisdol] Drisdo l 1.25 MG (69333 UT) Drisdol 1.25 MG (86122 UT) 02/09/2020 12:00:00 AM EDT 1.0 {capsule} active Drisdol 1.25 MG (17400 UT) eCW1 ([facility]) 200 ACTUAT Albuterol 0.09 MG/ACTUAT Mete red Dose Inhaler [ProAir] ProAir HFA 108 (90 Base) MCG/ACT ProAir HFA 108 (90 Base) MCG/ACT 02/09/2020 12:00:00 AM EDT 1.0 {puff_as_needed} active Pro Air HFA 108 (90 Base) MCG/ACT eCW1 ([facility]) Ergocalciferol 16593 UNT Oral Capsule [Drisdol] Drisdo l 1.25 MG (64826 UT) Drisdol 1.25 MG (36973 UT) 02/09/2020 12:00:00 AM EDT 1.0 {capsule} active Drisdol 1.25 MG (31301 UT) eCW1 ([facility]) Ergocalciferol 05429 UNT Oral Capsule [Drisdol] Drisdo l 1.25 MG (15477 UT) Drisdol 1.25 MG (45600 UT) 02/09/2020 12:00:00 AM EDT 1.0 {capsule} active Drisdol 1.25 MG (68086 UT) eCW1 ([facility]) Triamcinolone Acetonide 1 MG/ML Topical Cream Triamcin olone Acetonide 0.1 % Triamcinolone Acetonide 0.1 % 12/26/2019 12:00:00 AM EST 1.0 {appli cation} suspended Triamcinolone Acetonide 0 .1 % eCW1 ([facility]) 0.3 ML Epinephrine 1 MG/ML Auto-Injector [Epipen] EpiP en 2-Khari 0.3 MG/0.3ML EpiPen 2-Khari 0.3 MG/0.3ML 12/26/2019 12:00:00 AM EST active EpiPen 2-Khari 0.3 MG/0.3ML eCW1 ([facility]) 0.3 ML Epinephrine 1 MG/ML Auto-Injector [Epipen] EpiP en 2-Khari 0.3 MG/0.3ML EpiPen 2-Khari 0.3 MG/0.3ML 12/26/2019 12:00:00 AM EST active as directed eCW1 ([facility]) Triamcinolone Acetonide 1 MG/ML Topical Cream Triamcin olone Acetonide 0.1 % Triamcinolone Acetonide 0.1 % 12/26/2019 12:00:00 AM EST 1.0 {appli cation} suspended Triamcinolone Acetonide 0 .1 % eCW1 ([facility]) 0.3 ML Epinephrine 1 MG/ML Auto-Injector [Epipen] EpiP en 2-Khari 0.3 MG/0.3ML EpiPen 2-Khari 0.3 MG/0.3ML 12/26/2019 12:00:00 AM EST active EpiPen 2-Khari 0.3 MG/0.3ML eCW1 ([facility]) 0.3 ML Epinephrine 1 MG/ML Auto-Injector [Epipen] EpiP en 2-Khari 0.3 MG/0.3ML EpiPen 2-Khari 0.3 MG/0.3ML 12/26/2019 12:00:00 AM EST active EpiPen 2-Khari 0.3 MG/0.3ML eCW1 ([facility]) Triamcinolone Acetonide 1 MG/ML Topical Cream Triamcin olone Acetonide 0.1 % Triamcinolone Acetonide 0.1 % 12/26/2019 12:00:00 AM EST 1.0 {appli cation} suspended Triamcinolone Acetonide 0 .1 % eCW1 ([facility]) Loratadine 10 MG Oral Tablet [Claritin] Claritin 10 MG Eyssy tin 10 MG 12/26/2019 12:00:00 AM EST active 1 table t eCW1 ([facility]) Triamcinolone Acetonide 1 MG/ML Topical Cream Triamcin olone Acetonide 0.1 % Triamcinolone Acetonide 0.1 % 12/26/2019 12:00:00 AM EST 1.0 {appli cation} suspended Triamcinolone Acetonide 0 .1 % eCW1 ([facility]) 0.3 ML Epinephrine 1 MG/ML Auto-Injector [Epipen] EpiP en 2-Khari 0.3 MG/0.3ML EpiPen 2-Khari 0.3 MG/0.3ML 12/26/2019 12:00:00 AM EST active EpiPen 2-Khari 0.3 MG/0.3ML eCW1 ([facility]) Loratadine 10 MG Oral Tablet [Claritin] Claritin 10 MG Yessy tin 10 MG 12/26/2019 12:00:00 AM EST suspended 1 ta blet eCW1 ([facility]) 0.3 ML Epinephrine 1 MG/ML Auto-Injector [Epipen] EpiP en 2-Khari 0.3 MG/0.3ML EpiPen 2-Khari 0.3 MG/0.3ML 12/26/2019 12:00:00 AM EST active EpiPen 2-Khari 0.3 MG/0.3ML eCW1 ([facility]) 0.3 ML Epinephrine 1 MG/ML Auto-Injector [Epipen] EpiP en 2-Khari 0.3 MG/0.3ML EpiPen 2-Khari 0.3 MG/0.3ML 12/26/2019 12:00:00 AM EST active EpiPen 2-Khari 0.3 MG/0.3ML eCW1 ([facility]) Triamcinolone Acetonide 1 MG/ML Topical Cream Triamcin olone Acetonide 0.1 % Triamcinolone Acetonide 0.1 % 12/26/2019 12:00:00 AM EST active 1 application eCW1 ([facility]) 0.3 ML Epinephrine 1 MG/ML Auto-Injector [Epipen] EpiP en 2-Khari 0.3 MG/0.3ML EpiPen 2-Khari 0.3 MG/0.3ML 12/26/2019 12:00:00 AM EST active as directed eCW1 ([facility]) Triamcinolone Acetonide 1 MG/ML Topical Cream Triamcin olone Acetonide 0.1 % Triamcinolone Acetonide 0.1 % 12/26/2019 12:00:00 AM EST 1.0 {appli cation} suspended Triamcinolone Acetonide 0 .1 % eCW1 ([facility]) Triamcinolone Acetonide 1 MG/ML Topical Cream Triamcin olone Acetonide 0.1 % Triamcinolone Acetonide 0.1 % 12/26/2019 12:00:00 AM EST 1.0 {appli cation} suspended Triamcinolone Acetonide 0 .1 % eCW1 ([facility]) Triamcinolone Acetonide 1 MG/ML Topical Cream Triamcin olone Acetonide 0.1 % Triamcinolone Acetonide 0.1 % 12/26/2019 12:00:00 AM EST active 1 application eCW1 ([facility]) Insurance Providers Payer name Policy type / Coverage type Policy ID Covered republican ID Covered republican's relationship to wilcox Policy Wilcox Plan Information [facility] 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 [id number] [facility] [id number] [id number] SP [id number] [facility] [id number] SP [id number] [facility] [id number] SP [id number] MEDICAID M [id number] MEDICAID [id number] SP [id number] [facility] [id number] SP [id number] [facility] [id number] [id number] [facility] O [id number] S [id number] SELF PAY ONLY [id number] SP [id number] [facility] HUMAN [id number] [facility] [id number] N REGIONAL CLAIMS ARTHUR -O/P [id number] Problems, Conditions, and Diagnoses Code Display Name Description Problem Type Effective Dates Data Source(s) Z86.2 [id number] History of anemia Problem 09/08/2020 12:00:0 0 AM EDT eCW1 ([facility]) N80.9 Endometrioma Endometrioma Problem 06/11/2020 12:00:00 A M EDT eCW1 ([facility]) N80.9 Endometriosis Endometriosis Problem 06/11/2020 12:00:00 AM EDT eCW1 ([facility]) J45.20 [id number] Mild intermittent reactive airwa y disease without complication Problem 02/09/2020 12:00:00 AM EDT eCW1 ([facility]) J45.20 [id number] Mild intermittent reactive airwa y disease without complication Problem 02/09/2020 12:00:00 AM EDT eCW1 ([facility]) E55.9 [id number] Vitamin D deficiency Problem 02/06/2020 12:0 0:00 AM EDT eCW1 ([facility]) E55.9 [id number] Vitamin D deficiency Problem 02/06/2020 12:0 0:00 AM EDT eCW1 ([facility]) Z91.09 [id number] Environmental allergies Problem 12/26/2019 1 2:00:00 AM EST eCW1 ([facility]) F41.8 [id number] Anxiety with depression Problem 12/26/2019 1 2:00:00 AM EST eCW1 ([facility]) Z91.09 [id number] Environmental allergies Problem 12/26/2019 1 2:00:00 AM EST eCW1 ([facility]) F41.8 [id number] Anxiety with depression Problem 12/26/2019 1 2:00:00 AM EST eCW1 ([facility]) Surgeries/Procedures Procedure Description Date Indications Data Source(s) Injection, medroxyprogesterone acetate for contraceptive use , 150 mg 11/22/2020 12:00:00 AM EST eCW1 ([facility]) Injection, medroxyprogesterone acetate for contraceptive use , 150 mg 08/27/2020 12:00:00 AM EDT eCW1 ([facility]) Immunization: Flublok Quadrivalent (18 years & older) 0.5mL IM (Influenza) 08/25/2020 12:00:00 AM EDT eCW1 ([facility]) Injection, medroxyprogesterone acetate for contraceptive use , 150 mg 06/11/2020 12:00:00 AM EDT eCW1 ([facility]) URINE TEST 06/11/2020 12:00:00 AM EDT eCW1 ([facility]) Results ID Date Data Source [id number] 05/11/2020 09:55:00 AM EDT [facility] Name Value Range Interpretation Code Description Data Jocelynn rce(s) Supporting Document(s) SARS CORONAVIRUS 2 RNA [facility] This lab was ordered by [facility] and reported by [facility]. ID Date Data Source HEPATITIS BE ANTIGEN 12/12/2019 12:00:00 AM EST eCW1 ([facility]) Name Value Range Interpretation Code Description Data Jocelynn rce(s) Supporting Document(s) Negative Negative HEPATITIS BE ANTIGEN eCW1 ([facility]) ID Date Data Source SYPHILIS ANTIBODY (RPR SCREEN) 12/12/2019 12:00:00 AM EST eC W1 ([facility]) Name Value Range Interpretation Code Description Data Jocelynn rce(s) Supporting Document(s) NONREACTIVE NONREACTIVE SYPHILIS eCW1 ([facility]) Procedure Social History Code Duration Value Status Description Data Source(s ) Smoking 11/25/2020 12:00:00 AM EST Patient has never smoked co mpleted Patient has never smoked MEDENT ([facility]) Vital Signs ID Date Data Source UNK Name Value Range Interpretation Code Description Data Source(s) Body mass index (BMI) [Ratio] 31.1 kg/m2 31.1 k g/m2 MEDENT ([facility]) Body height 65 [in_i] 65 [in_i] MEDENT ([facility]) 5'5" Body weight 187.00 [lb_av] 187.00 [lb_av] MEDEN T ([facility]) Body temperature 97.7 [degF] 97.7 [degF] MEDENT ([facility]) Oxygen saturation in Arterial blood by Pulse oximetry 98 % 98 % MEDENT ([facility]) Respiratory rate 18 /min 18 /min MEDENT ( [facility], [facility]) Heart rate 86 /min 86 /min MEDENT ([facility]) Diastolic blood pressure 70 mm[Hg] 70 mm[Hg] MEDENT ([facility]) Systolic blood pressure 115 mm[Hg] 115 mm[Hg] M EDENT ([facility], [facility]) Diastolic blood pressure 70 mm[Hg] 70 mm[Hg] eCW1 ([facility]) Systolic blood pressure 132 mm[Hg] 132 mm[Hg] e CW1 ([facility]) Body temperature 96.1 [degF] 96.1 [degF] eCW1 ( [facility]) Respiratory rate 18 /min 18 /min eCW1 ([facility]) Heart rate 89 /min 89 /min eCW1 ([facility]) Body mass index (BMI) [Ratio] 32.61 kg/m2 32.61 kg/m2 eCW1 ([facility]) Body height 65 [in_i] 65 [in_i] eCW1 ([facility]) Body weight 196 [lb_av] 196 [lb_av] eCW1 ([facility]) Diastolic blood pressure 74 mm[Hg] 74 mm[Hg] eCW1 ([facility]) Systolic blood pressure 120 mm[Hg] 120 mm[Hg] e CW1 ([facility]) Body temperature 97.1 [degF] 97.1 [degF] eCW1 ( [facility]) Respiratory rate 18 /min 18 /min eCW1 ([facility]) Heart rate 98 /min 98 /min eCW1 ([facility]) Body mass index (BMI) [Ratio] 30.75 kg/m2 30.75 kg/m2 W1 ([facility]) Body height 65 [in_i] 65 [in_i] eCW1 ([facility]) Body weight 184.8 [lb_av] 184.8 [lb_av] eCW1 ([facility]) Diastolic blood pressure 78 mm[Hg] 78 mm[Hg] eCW1 ([facility]) Systolic blood pressure 120 mm[Hg] 120 mm[Hg] e CW1 ([facility]) Body temperature 97.6 [degF] 97.6 [degF] eCW1 ( [facility]) Respiratory rate 18 /min 18 /min eCW1 ([facility]) Heart rate 85 /min 85 /min eCW1 ([facility]) Body mass index (BMI) [Ratio] 30.62 kg/m2 30.62 kg/m2 eCW1 ([facility]) Body height 65 [in_i] 65 [in_i] eCW1 ([facility]) Body weight 184 [lb_av] 184 [lb_av] eCW1 ([facility]) Diastolic blood pressure 68 mm[Hg] 68 mm[Hg] eCW1 ([facility]) Systolic blood pressure 118 mm[Hg] 118 mm[Hg] e CW1 ([facility]) Body mass index (BMI) [Ratio] 30.62 kg/m2 30.62 kg/m2 eCW1 ([facility]) Body height 65 [in_i] 65 [in_i] eCW1 ([facility]) Body weight 184 [lb_av] 184 [lb_av] eCW1 ([facility]) Diastolic blood pressure 78 mm[Hg] 78 mm[Hg] eCW1 ([facility]) Systolic blood pressure 118 mm[Hg] 118 mm[Hg] e CW1 ([facility]) Body mass index (BMI) [Ratio] 29.82 kg/m2 29.82 kg/m2 eCW1 ([facility]) Body height 65 [in_us] 65 [in_us] eCW1 ([facility]) Body weight Measured 179.2 [lb_av] 179.2 [lb_av ] eCW1 ([facility]) Diastolic blood pressure 64 mm[Hg] 64 mm[Hg] eCW1 ([facility]) Systolic blood pressure 100 mm[Hg] 100 mm[Hg] e CW1 ([facility]) Body temperature 97.1 [degF] 97.1 [degF] eCW1 ( [facility]) Respiratory rate 18 /min 18 /min eCW1 ([facility]) Heart rate 106 /min 106 /min eCW1 ([facility]) Body mass index (BMI) [Ratio] 28.95 kg/m2 28.95 kg/m2 eCW1 ([facility]) Body height 65 [in_us] 65 [in_us] eCW1 ([facility]) Body weight Measured 174 [lb_av] 174 [lb_av] eC W1 ([facility]) Diastolic blood pressure 78 mm[Hg] 78 mm[Hg] eCW1 ([facility]) Systolic blood pressure 118 mm[Hg] 118 mm[Hg] e CW1 ([facility]) Body mass index (BMI) [Ratio] 28.89 kg/m2 28.89 kg/m2 eCW1 ([facility]) Body height 65 [in_us] 65 [in_us] eCW1 ([facility]) Body weight Measured 173.6 [lb_av] 173.6 [lb_av ] eCW1 ([facility]) Patient Treatment Plan of Care Planned Activity Planned Date Details Description Data Source (s) 24 HR venlafaxine 37.5 MG Extended Release Oral Capsul e [Effexor] 11/24/2020 12:00:00 AM EST eCW1 ([facility]) Hydroxyzine Pamoate 25 MG Oral Capsule [Vistaril] 02/09/2020 12: 00:00 AM EDT eCW1 ([facility]) 200 ACTUAT Albuterol 0.09 MG/ACTUAT Metered Dose Inhal er [ProAir] 02/09/2020 12:00:00 AM EDT eCW1 ([facility]) 0.3 ML Epinephrine 1 MG/ML Auto-Injector [Epipen] 12/26/2019 12: 00:00 AM EST eCW1 ([facility]) Loratadine 10 MG Oral Tablet [Claritin] 12/26/2019 12:00:00 AM EST eCW1 ([facility]) Triamcinolone Acetonide 1 MG/ML Topical Cream 12/26/2019 12:00:00 A M EST eCW1 ([facility])
== END 2021-01-08 13:45 | disposition home or self-care (01) ==
LOC: M ED 11:30
DX: N83.291 Other ovarian cyst, right side (principal); D64.9 Anemia, unspecified; Z79.3 Long term (current) use of hormonal contraceptives; Z79.899 Other long term (current) drug therapy; J30.2 Other seasonal allergic rhinitis; Z88.2 Allergy status to sulfonamides; Z91.89 Other specified personal risk factors, not elsewhere classified; Z91.030 Bee allergy status
CPT/HCPCS: 74177; 80047; 80076; 81001; 83690; 84702; 85025; 96374; 96375; 99284; J1885; J2405; Q9967

== ENCOUNTER → 2021-01-19 | Outpatient (REF) | payer BC, MEDICAID, OTHER ==
[2021-01-19 13:40] LABS: BASO # 0.1 10^3/uL (0.0-0.2); EOS # 0.1 10^3/uL (0.0-0.5); EOS % 1.2 % (0.0-3.0); HEMATOCRIT 43.5 % (36.0-47.0); HEMOGLOBIN 14.4 g/dl (12.0-15.5); LYMPH # 1.8 10^3/uL (1.5-5.0); LYMPH % 28.8 % (24.0-44.0); MEAN CORPUSCULAR HEMOGLOBIN 30.4 pg (27.0-33.0); MEAN CORPUSCULAR HGB CONC 33.1 g/dl (32.0-36.5); MONO # 0.5 10^3/uL (0.0-0.8); MONO % 7.6 % (2.0-8.0); NEUTROPHILS # 3.7 10^3/uL (1.5-8.5); NEUTROPHILS % 61.1 % (36.0-66.0); PLATELET COUNT, AUTOMATED 279 10^3/uL (150-450); RED BLOOD COUNT 4.73 10^6/uL (4.00-5.40); WHITE BLOOD COUNT 6.1 10^3/uL (4.0-10.0)
[2021-01-19 13:51] LABS: ALBUMIN 4.2 GM/DL (3.2-5.2); ALT/SGPT 21 U/L (12-78); BILIRUBIN,TOTAL 0.7 MG/DL (0.2-1.0); BLOOD UREA NITROGEN 12 MG/DL (7-18); C REACTIVE PROTEIN QUANTITATIV 0.35 MG/DL (0.00-0.30); CALCIUM LEVEL 9.6 MG/DL (8.5-10.1); CARBON DIOXIDE LEVEL 28 MEQ/L (21-32); CHLORIDE LEVEL 109 MEQ/L (98-107); CREATININE FOR GFR 0.78 MG/DL (0.55-1.30); GLOMERULAR FILTRATION RATE > 60.0 (>60); GLUCOSE, FASTING 74 MG/DL (70-100); POTASSIUM SERUM 4.1 MEQ/L (3.5-5.1); RHEUMATOID FACTOR QUANT < 10.0 IU/ML (<15.0); SODIUM LEVEL 141 MEQ/L (136-145); TOTAL PROTEIN 7.8 GM/DL (6.4-8.2)
[2021-01-19 14:16] LABS: ERYTHROCYTE SEDIMENTATION RATE 13 mm/hr (0-20)
[2021-01-20 16:12] LABS: ANTINUCLEAR ANTIBODIES DIRECT Negative (Negative); Lyme Disease IgG/IgM Antibodie <0.91 ISR (0.00-0.90); Lyme Disease IgM Ab Quantitati <0.80 index (0.00-0.79)
== END ==
LOC: M SFHCADAM 09:14
PROVIDERS: ATTEND Family Medicine
DX: M25.50 Pain in unspecified joint (principal); R59.1 Generalized enlarged lymph nodes

== ENCOUNTER → 2021-02-01 | Outpatient (CLI) | payer BC, OTHER ==
--- NOTE | 2021-02-01 16:00 | REP ---
INDICATION: LEFT AXILLA LYPHADENOPATHY. COMPARISON: None. TECHNIQUE: Left axillary sonography is performed. FINDINGS: Multiple left axillary lymph nodes are identified. These all have preserved echogenic fatty architecture. The largest 3 measure 1.8 x 1.1 x 1.1, 2.3 x 0.6 x 1.8, and 1.6 x 0.9 x 1.4 cm. Contralateral scanning of the right breast shows identified no axillary lymph nodes. No replaced lymph nodes are identified. No cyst or mass lesion is seen. IMPRESSION: BI-RADS category 3 probably benign findings. Mild hypertrophy of the lymph nodes in the left axilla. These are ipsilateral to the patient has a recently administered COVID vaccine, January 22, 2021. Symptoms of pain and tenderness pre date the vaccine however, November of 2020. Three month follow-up axillary sonography recommended. Sooner if clinical course progresses. <Electronically signed by Praful Peters > 02/01/21 [id number]
== END ==
LOC: M RAD 11:41
PROVIDERS: ATTEND Family Medicine
DX: R59.1 Generalized enlarged lymph nodes (principal)

== ENCOUNTER → 2021-03-11 | Outpatient (CLI) | payer BC ==
--- NOTE | 2021-03-11 17:04 | REP ---
INDICATION: OVARIAN CYST/RIGHT COMPARISON: 04/06/2020 TECHNIQUE: Transabdominal pelvic ultrasound followed by transvaginal examination for better evaluation of the endometrium and adnexa with color Doppler evaluation of the ovaries. FINDINGS: Bladder is unremarkable and measures approximately 10.7 x 8.8 x 5.0 cm. Heterogeneous anteverted/right deviated uterus measures 7.1 x 3.8 x 3.4 cm. The endometrial complex measures 11 mm thickness. Left intramural/submucosal fibroid measures 1.3 x 1.0 x 1.3 cm. Bilateral ovaries are normal in vascularity without torsion. Right ovary measures 5.8 x 3.6 x 5.7 cm and includes complex 5.2 x 2.5 x 4.9 cm cyst with debris and septations decreased in size from prior pelvic ultrasound, but essentially unchanged compared to CT dated 01/08/2021. Left ovary measures 2.7 x 1.5 x 1.6 cm with few small calcifications. IMPRESSION: 1. Heterogeneous uterus with 1.3 cm intramural/submucosal fibroid. 2. Complex septated right ovarian cyst measuring 5.2 cm maximal diameter and essentially unchanged when compared with CT dated 01/08/2021, but significantly decreased in size from prior 2019 pelvic ultrasounds. <Electronically signed by Brandon Mejias > 03/11/21 [id number]
== END ==
LOC: M WHC 15:58
PROVIDERS: ATTEND Obstetrics & Gynecology
DX: N83.291 Other ovarian cyst, right side (principal); D25.0 Submucous leiomyoma of uterus

== ENCOUNTER → 2021-03-16 | Outpatient (CLI) | payer BC ==
--- NOTE | 2021-03-16 10:32 | REP ---
INDICATION: R59.0 AXILLARY LYMPHADENOPATHY,N64.52 NIPPLE DISCHARGE. COMPARISON: 12/16/2019 TECHNIQUE: Diagnostic mammography was performed bilaterally in the CC and MLO projection shows in 2D and 3D modalities. In addition, diagnostic digital magnified spot compression views of the left breast were obtained along with focused left breast ultrasound. Patient states she has had left nipple discharge since "high school" patient has no complaint of a palpable breast abnormality or focal breast complaints. The prior examination of 12/16/2019 was reviewed. FINDINGS: The breasts are unchanged in size and shape. Once again, scattered dense heterogenous fibroglandular limits are seen bilaterally to such a degree that the sensitivity of the mammogram a detecting cancer is decreased. In the left breast upper outer quadrant there is a potential asymmetric density. No other suspicious features are seen in either breast. Diagnostic digital magnified spot compression views of the left breast over the region of interest shows the area to compress out to normal appearing breast parenchyma. Diagnostic left breast ultrasonography over the region of interest shows a tiny 7 mm sized hypoechoic area at the 1 o'clock position. This has a maximal dimension of 7 mm. The Volpara volumetric breast density pattern is b. IMPRESSION: BIRADS/ACR category 3. The mammographic area of interest in the left breast compresses out with spot compression magnified technique, however, a tiny complex cyst is suspected in the left breast at 1 o'clock in for which a six-month follow-up ultrasound examination is recommended. This patient's Tyrer-Cuzick lifetime breast cancer risk assessment score is 22.2%. Due to the patient's high T-C score baseline breast MRI is warranted. This mammogram was interpreted with the aid of an FDA-approved computer-aided detection system. The patient states she had a clinical breast exam in February 2021. The patient letter being requested is M3. RECOMMENDATION: As above <Electronically signed by Ortega Sullivan > 03/16/21 [id number]
== END ==
LOC: M WHC 08:06
PROVIDERS: ATTEND Family Medicine
DX: R59.0 Localized enlarged lymph nodes (principal); N64.52 Nipple discharge; R91.8 Other nonspecific abnormal finding of lung field
CPT/HCPCS: 76642; 77066; G0279

== ENCOUNTER → 2021-03-24 | Outpatient (REF) | payer BC, OTHER ==
[2021-03-25 13:41] LABS: C REACTIVE PROTEIN QUANTITATIV < 0.30 MG/DL (0.00-0.30); PROLACTIN 8.8 NG/ML
== END ==
LOC: M SFHCADAM 15:59
PROVIDERS: ATTEND Family Medicine
DX: M25.50 Pain in unspecified joint (principal); N64.52 Nipple discharge

== ENCOUNTER → 2021-03-27 | Outpatient (CLI) | payer BC ==
[2021-03-27 10:07] LABS: BASO # 0.1 10^3/uL (0.0-0.2); BASO % 0.8 % (0.0-1.0); EOS # 0.1 10^3/uL (0.0-0.5); EOS % 1.5 % (0.0-3.0); HEMATOCRIT 39.5 % (36.0-47.0); HEMOGLOBIN 13.9 g/dl (12.0-15.5); LYMPH # 1.5 10^3/uL (1.5-5.0); LYMPH % 22.5 % (24.0-44.0); MEAN CORPUSCULAR HEMOGLOBIN 31.7 pg (27.0-33.0); MEAN CORPUSCULAR HGB CONC 35.2 g/dl (32.0-36.5); MEAN CORPUSCULAR VOLUME 90.2 fl (80.0-96.0); MONO # 0.5 10^3/uL (0.0-0.8); MONO % 7.3 % (2.0-8.0); NEUTROPHILS # 4.4 10^3/uL (1.5-8.5); NEUTROPHILS % 67.6 % (36.0-66.0); PLATELET COUNT, AUTOMATED 231 10^3/uL (150-450); RED BLOOD COUNT 4.38 10^6/uL (4.00-5.40); WHITE BLOOD COUNT 6.5 10^3/uL (4.0-10.0)
[2021-03-27 10:28] LABS: BLOOD UREA NITROGEN 10 MG/DL (7-18); CARBON DIOXIDE LEVEL 27 MEQ/L (21-32); CHLORIDE LEVEL 111 MEQ/L (98-107); CREATININE FOR GFR 0.65 MG/DL (0.55-1.30); GLOMERULAR FILTRATION RATE > 60.0 (>60); GLUCOSE, FASTING 94 MG/DL (70-100); POTASSIUM SERUM 3.5 MEQ/L (3.5-5.1); SODIUM LEVEL 143 MEQ/L (136-145)
--- NOTE | 2021-03-27 10:43 | REP ---
INDICATION: LOWER ABDOMINAL PAIN, UNSPECIFIED/ OLABS 1ST. COMPARISON: None. FINDINGS: KUB shows the intestinal gas pattern to be nonspecific. The organ silhouettes insofar as delineated are unremarkable. There is no evidence of free intraperitoneal air. The 1st image shows 2 radiodensities 1 in the left hemipelvis and the other superimposed over the left hip. The 2nd image shows only 1 radiodensity superimposed over the right femoral neck. These likely represent imaging artifacts. IMPRESSION: As above <Electronically signed by Ortega Sullivan > 03/27/21 [id number]
== END ==
LOC: M LAB 09:44
PROVIDERS: ATTEND Family Medicine
DX: R10.30 Lower abdominal pain, unspecified (principal)

== ENCOUNTER → 2021-03-27 | Outpatient (REF) | payer BC | LOC: M LAB REF 19:02 | PROVIDERS: ATTEND Physician Assistant | DX: R10.30 Lower abdominal pain, unspecified (principal) ==

== ENCOUNTER → 2021-05-17 | Outpatient (REF) | payer BC, OTHER ==
[~2021-05-17] MED LIST changes: +ERGO500029 PO; -VITA50005 PO
== END ==
LOC: M SFHCWAGY 18:54
PROVIDERS: ATTEND Advanced Practice Midwife
DX: Z12.4 Encounter for screening for malignant neoplasm of cervix (principal)

== ENCOUNTER → 2021-05-24 | Outpatient (REF) | payer BC | LOC: M WUC 19:56 | PROVIDERS: ATTEND Nurse Practitioner Family | DX: R11.0 Nausea (principal); R10.10 Upper abdominal pain, unspecified ==

== ENCOUNTER → 2021-05-30 | Outpatient (REF) | payer BC ==
[2021-05-30 13:31] LABS: FREE T4 1.03 NG/DL (0.76-1.46); THYROID STIMULATING HORMONE 1.4 uIU/ML (0.358-3.740)
== END ==
LOC: M SFHCADAM 11:25
PROVIDERS: ATTEND Family Medicine
DX: R53.83 Other fatigue (principal)

== ENCOUNTER → 2021-06-13 | Outpatient (CLI) | payer BC, OTHER ==
[~2021-06-13] MED LIST changes: +PROHANCE 279.3MG/ML 15ML VIAL As Ordered ONE; +PROHANCE 279.3MG/ML 5ML VIAL As Ordered ONE
--- NOTE | 2021-06-13 14:09 | REP ---
INDICATION: PAIN, MASS LT, LN, NIPPLE DISCHAGE/RETRACTION. Left breast mass, nipple retraction and nipple discharge. Palpable lymph node. Breast pain. Bilateral nipple discharge, left breast mass, swollen bilateral lymph nodes. Left nipple retraction. COMPARISON: Comparison mammography and sonography March 16, 2021. TECHNIQUE: Three [place] MRI imaging was performed with a dedicated breast coil. Axial, coronal, and sagittal T1 and T2 weighted scans were obtained with and without fat saturation in the usual fashion. The study includes dynamically acquired post gadolinium-enhanced imaging with image subtraction. Maximum intensity projection and multi planar reformation imaging is included as well. This study is interpreted with the aid of Kijubi, an FDA approved computer aided detection (CAD) software program, on a dedicated breast MRI workstation. The gadolinium enhancement dose is 18 mL of intravenous ProHance. FINDINGS: There is a mild to moderate amount of fibroglandular tissue bilaterally corresponding with the mammographic pattern. There is minimal background parenchymal enhancement. There is no evidence of axillary lymphadenopathy or significant breast cystic change. There is a small subcentimeter cyst in the left breast just medial to the plane of the nipple. There is no MR evidence of nipple retraction on either side. High-resolution pre and post-contrast T1 and T2 weighted scans show no suspicious morphologic abnormality in either breast. Dynamically acquired sequential postcontrast images show no suspicious area of enhancement and washout kinetics in either breast to suggest malignancy. Subtraction images show no additional abnormality. IMPRESSION: BI-RADS category 2 benign bilateral breast MRI findings. <Electronically signed by Praful Peters > 06/13/21 [id number]
== END ==
LOC: M RAD 10:53
PROVIDERS: ATTEND Surgery
DX: R92.8 Other abnormal and inconclusive findings on diagnostic imaging of breast (principal); N63.20 Unspecified lump in the left breast, unspecified quadrant; N64.52 Nipple discharge; N64.53 Retraction of nipple; R59.9 Enlarged lymph nodes, unspecified; N64.4 Mastodynia; N60.02 Solitary cyst of left breast
CPT/HCPCS: 77049; A9576

== ENCOUNTER → 2021-06-27 | Outpatient (CLI) | payer BC ==
[~2021-06-27] MED LIST changes: -PROHANCE 279.3MG/ML 15ML VIAL As Ordered ONE; -PROHANCE 279.3MG/ML 5ML VIAL As Ordered ONE
--- NOTE | 2021-06-28 15:01 | REP ---
INDICATION: LT BREAST 1:00 BIRADS 3 ASSESS STABILITY OF PREVIOUS CYST. COMPARISON: Comparison targeted left breast sonography March 16, 2021.. TECHNIQUE: Focused left breast sonography 1 centered at the 1 o'clock position. FINDINGS: Heterogeneous fibroglandular background echotexture is observed. No cyst is seen today. No mass is observed. No acoustic shadowing is observed. IMPRESSION: BI-RADS category 1-findings on targeted sonography left breast. The previously noted 3 mm cyst is not apparent. Clinical follow-up is advised. <Electronically signed by Praful Peters > 06/28/21 [id number]
== END ==
LOC: M WHC 13:35
PROVIDERS: ATTEND Surgery
DX: R92.8 Other abnormal and inconclusive findings on diagnostic imaging of breast (principal)

== ENCOUNTER → 2021-07-26 | Outpatient (CLI) | payer BC ==
--- NOTE | 2021-07-26 14:44 | REP ---
INDICATION: CAT 3 MAMMO PALPABLE LYMPH NODE, LEFT AXILLARY. COMPARISON: 02/01/2021. TECHNIQUE: Real-time sonographic evaluation of left axilla performed. FINDINGS: Multiple lymph nodes are again seen in the left axilla. Morphologically these all have a relatively normal appearance with echogenic fatty carlos. The largest measure 1.3 x 0.4 x 1.0 cm, 1.2 x 0.5 x 1.0 cm and 1.6 x 0.8 x 0.9 cm. They have decreased in size when compared to the prior study. IMPRESSION: Left axillary lymph nodes have decreased in size when compared to the prior study, compatible with resolving reactive lymph nodes. <Electronically signed by Delgado Blackmon > 07/26/21 [id number]
== END ==
LOC: M WHC 13:27
PROVIDERS: ATTEND Surgery
DX: R92.8 Other abnormal and inconclusive findings on diagnostic imaging of breast (principal); R59.0 Localized enlarged lymph nodes

== ENCOUNTER → 2021-08-30 | Outpatient (REF) | payer BC, OTHER ==
[2021-08-30 13:00] LABS: BASO # 0.1 10^3/uL (0.0-0.2); BASO % 1.2 % (0.0-1.0); EOS # 0.1 10^3/uL (0.0-0.5); EOS % 1.6 % (0.0-3.0); HEMATOCRIT 44.7 % (36.0-47.0); LYMPH # 1.6 10^3/uL (1.5-5.0); LYMPH % 24.6 % (24.0-44.0); MEAN CORPUSCULAR HEMOGLOBIN 30.8 pg (27.0-33.0); MEAN CORPUSCULAR HGB CONC 33.6 g/dl (32.0-36.5); MEAN CORPUSCULAR VOLUME 91.8 fl (80.0-96.0); MONO # 0.5 10^3/uL (0.0-0.8); NEUTROPHILS # 4.2 10^3/uL (1.5-8.5); NEUTROPHILS % 65.3 % (36.0-66.0); PLATELET COUNT, AUTOMATED 284 10^3/uL (150-450); RED BLOOD COUNT 4.87 10^6/uL (4.00-5.40); WHITE BLOOD COUNT 6.4 10^3/uL (4.0-10.0)
[2021-08-30 13:24] LABS: ERYTHROCYTE SEDIMENTATION RATE 13 mm/hr (0-20)
[2021-08-30 14:01] LABS: ALT/SGPT 21 U/L (12-78); BILIRUBIN,TOTAL 0.4 MG/DL (0.2-1.0); BLOOD UREA NITROGEN 13 MG/DL (7-18); C REACTIVE PROTEIN QUANTITATIV 0.62 MG/DL (0.00-0.30); CALCIUM LEVEL 9.6 MG/DL (8.5-10.1); CARBON DIOXIDE LEVEL 29 MEQ/L (21-32); CHLORIDE LEVEL 108 MEQ/L (98-107); CREATININE FOR GFR 0.78 MG/DL (0.55-1.30); GLOMERULAR FILTRATION RATE > 60.0 (>60); GLUCOSE, FASTING 74 MG/DL (70-100); POTASSIUM SERUM 3.6 MEQ/L (3.5-5.1); RHEUMATOID FACTOR QUANT < 10.0 IU/ML (<15.0); SODIUM LEVEL 140 MEQ/L (136-145); TOTAL PROTEIN 7.8 GM/DL (6.4-8.2)
== END ==
LOC: M SFHCRHEU 08:44
PROVIDERS: ATTEND Internal Medicine Rheumatology
DX: M35.3 Polymyalgia rheumatica (principal)

== ENCOUNTER → 2021-09-09 | Outpatient (CLI) | payer BC ==
[2021-09-09 17:27] LABS: BASO # 0.1 10^3/uL (0.0-0.2); BASO % 0.9 % (0.0-1.0); EOS # 0.1 10^3/uL (0.0-0.5); EOS % 1.2 % (0.0-3.0); HEMATOCRIT 40.8 % (36.0-47.0); HEMOGLOBIN 13.8 g/dl (12.0-15.5); LYMPH # 1.7 10^3/uL (1.5-5.0); LYMPH % 21.8 % (24.0-44.0); MEAN CORPUSCULAR HEMOGLOBIN 30.7 pg (27.0-33.0); MEAN CORPUSCULAR HGB CONC 33.8 g/dl (32.0-36.5); MEAN CORPUSCULAR VOLUME 90.7 fl (80.0-96.0); MONO # 0.6 10^3/uL (0.0-0.8); MONO % 7.6 % (2.0-8.0); NEUTROPHILS # 5.3 10^3/uL (1.5-8.5); NEUTROPHILS % 68.4 % (36.0-66.0); PLATELET COUNT, AUTOMATED 286 10^3/uL (150-450); WHITE BLOOD COUNT 7.7 10^3/uL (4.0-10.0)
[2021-09-09 17:51] LABS: ALBUMIN 3.6 GM/DL (3.2-5.2); ALT/SGPT 22 U/L (12-78); BILIRUBIN,DIRECT < 0.1 MG/DL (0.0-0.2); BILIRUBIN,TOTAL 0.3 MG/DL (0.2-1.0); BLOOD UREA NITROGEN 11 MG/DL (7-18); CREATININE FOR GFR 0.79 MG/DL (0.55-1.30); GLOMERULAR FILTRATION RATE > 60.0 (>60); TOTAL PROTEIN 7.1 GM/DL (6.4-8.2)
== END ==
LOC: M PLALAB 15:08
PROVIDERS: ATTEND Internal Medicine Gastroenterology
DX: K58.1 Irritable bowel syndrome with constipation (principal)

== ENCOUNTER → 2021-09-10 | Outpatient (REF) | payer BC | LOC: M LAB REF 09:48 | PROVIDERS: ATTEND Internal Medicine Gastroenterology | DX: K58.1 Irritable bowel syndrome with constipation (principal) ==

== ENCOUNTER → 2021-09-17 | Outpatient (CLI) | payer BC ==
--- NOTE | 2021-09-19 20:23 | SLEEPCENT ---
NOCTURNAL POLYSOMNOGRAPHY DATE: 09/17/2021 ORDERED BY: Payton Jones NP Nocturnal polysomnography was performed for evaluation of sleep physiology in this patient with a history of snoring and nonrestorative sleep. 8 hours and 7 minutes of data were reviewed. There were 261 minutes of sleep identified. Sleep latency was very prolonged at 190 minutes. REM latency was also prolonged at 157 minutes. Sleep architecture once established was reasonably good. There was one REM cycle. Overall sleep efficiency was 54.3%. The electrocardiogram showed a sinus rhythm with an average heart rate of 80 beats per minute. There were unifocal ventricular ectopic beats seen; rate range was 60 to 90. EEG showed fairly normal waveforms for wake and sleep. Some minor alpha intrusion was noted in non-REM stages. There were no obstructive respiratory events appreciated of 10 seconds in duration or greater. Mild snoring was noted mostly in REM. There was some limb activity seen early in the study. Limb movement arousal index was within normal limits at 4.6. IMPRESSION: Normal nocturnal polysomnography with snoring. COMMENT: The delayed sleep latency may have been related to the laboratory setting or possibly to sleep hygiene issues.
== END ==
LOC: M SLEEP 20:00
PROVIDERS: ATTEND Nurse Practitioner Adult Health
DX: R06.83 Snoring (principal)

== ENCOUNTER → 2021-09-30 | Outpatient (CLI) | payer BC ==
--- NOTE | 2021-09-30 13:00 | REP ---
INDICATION: POLYMYALGIA RHEUMATICA. COMPARISON: None. TECHNIQUE: Four views FINDINGS: Four views of the sacroiliac joints show them to be non-fused. There is no lysis or sclerosis of either the sacral or iliac side of either SI joint. There is no evidence of whiskering. There is no prominent osteophytosis. IMPRESSION: SI joints within normal limits. <Electronically signed by Ortega Sullivan > 09/30/21 [id number]
--- NOTE | 2021-09-30 13:01 | REP ---
INDICATION: POLYMYALGIA RHEUMATICA. COMPARISON: None. TECHNIQUE: Four views each hand FINDINGS: Bilateral: The joint spaces are symmetric and relatively well maintained. There is no evidence of acute fracture or destructive osseous lesion. There is no periarticular osteopenia. There are no marginal erosions. There is no marginal osteophytosis. IMPRESSION: Within normal limits bilateral <Electronically signed by Ortega Sullivan > 09/30/21 [id number]
--- NOTE | 2021-09-30 13:03 | REP ---
INDICATION: POLYMYALGIA RHEUMATICA. COMPARISON: None. TECHNIQUE: Four views each foot FINDINGS: Bilateral: The joint spaces are symmetric and relatively well maintained. There is no evidence of acute fracture or destructive osseous lesion. Seen in the left foot on the lateral view only there is a subtle linear lucency between the talus and os calcis. 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 <Electronically signed by Ortega Sullivan > 09/30/21 [id number]
== END ==
LOC: M RAD 11:51
PROVIDERS: ATTEND Internal Medicine Rheumatology
DX: M35.3 Polymyalgia rheumatica (principal); R93.6 Abnormal findings on diagnostic imaging of limbs

== ENCOUNTER → 2021-12-05 | Outpatient (CLI) | payer BC | LOC: M WHC 13:53 | PROVIDERS: ATTEND Surgery | DX: R92.8 Other abnormal and inconclusive findings on diagnostic imaging of breast (principal); N64.53 Retraction of nipple; Z80.3 Family history of malignant neoplasm of breast | CPT/HCPCS: 77065; G0279 ==

== ENCOUNTER 2022-04-11 14:58 | Emergency (ER) | payer BC ==
[~2022-04-11] VITALS: Ht 165.1 cm; Wt 95.5 kg
[2022-04-11] MEDS ORDERED: DULO1CAP5 (15:09)
[2022-04-11] MEDS ORDERED: OXYM15SP2 (15:09)
[2022-04-11] MEDS ORDERED: LORA-674 (15:09)
[2022-04-11] MEDS ORDERED: KETOROLAC 60MG 2ML VIAL IM ONE (18:50)
[2022-04-11] MEDS ORDERED: CIPR7.5D5 AS (19:03)
[2022-04-11] MEDS ORDERED: PSEU120T19 PO (19:03)
[2022-04-11] MEDS ORDERED: IBUP-1022 PO (19:03)
[2022-04-11] MEDS ORDERED: HYDR-3713 PO (19:03)
[2022-04-11 19:19] VITALS: BP 121/67
== END 2022-04-11 19:21 | disposition home or self-care (01) ==
LOC: M ED 14:58
DX: H65.02 Acute serous otitis media, left ear (principal); R09.81 Nasal congestion; Z79.899 Other long term (current) drug therapy; J30.89 Other allergic rhinitis; Z88.2 Allergy status to sulfonamides; Z91.89 Other specified personal risk factors, not elsewhere classified; Z91.030 Bee allergy status
CPT/HCPCS: 96372; 99283; J1885

== ENCOUNTER → 2022-07-18 | Outpatient (REF) | payer BC ==
[~2022-07-18] MED LIST changes: +CIPR7.5D5 AS; +DULO1CAP5; +HYDR-3713 PO; +IBUP-1022 PO; +LORA-674; +OXYM15SP2; +PSEU120T19 PO
[2022-07-18 12:13] LABS: RSV AMPLIFICATION NEGATIVE (NEGATIVE)
== END ==
LOC: M LAB REF 11:13
PROVIDERS: ATTEND Physician Assistant
DX: J06.9 Acute upper respiratory infection, unspecified (principal)

== ENCOUNTER → 2023-02-15 | Outpatient (REF) | payer BC | LOC: M SFHCWAGY 15:41 | PROVIDERS: ATTEND Nurse Practitioner Family | DX: Z12.4 Encounter for screening for malignant neoplasm of cervix (principal); R87.615 Unsatisfactory cytologic smear of cervix ==

== ENCOUNTER → 2023-04-09 | Outpatient (REF) | payer BC | LOC: M SFHCWAGY 10:30 | PROVIDERS: ATTEND Nurse Practitioner Family | DX: Z12.4 Encounter for screening for malignant neoplasm of cervix (principal); R87.610 Atypical squamous cells of undetermined significance on cytologic smear of cervix (ASC-US) ==

== ENCOUNTER → 2023-09-12 | Outpatient (REF) | payer OTHER ==
[~2023-09-12] MED LIST changes: +LORA-1041; -LORA-674
[2023-09-12 13:10] LABS: BASO # 0.1 10^3/uL (0.0-0.2); BASO % 1.5 % (0.0-1.0); EOS # 0.2 10^3/uL (0.0-0.5); EOS % 1.7 % (0.0-3.0); HEMATOCRIT 43.1 % (36.0-47.0); HEMOGLOBIN 14.1 g/dl (12.0-15.5); LYMPH # 1.8 10^3/uL (1.5-5.0); LYMPH % 19.2 % (24.0-44.0); MEAN CORPUSCULAR HEMOGLOBIN 28.9 pg (27.0-33.0); MEAN CORPUSCULAR HGB CONC 32.7 g/dl (32.0-36.5); MEAN CORPUSCULAR VOLUME 88.3 fl (80.0-96.0); MONO # 0.7 10^3/uL (0.0-0.8); MONO % 7.7 % (2.0-8.0); NEUTROPHILS # 6.6 10^3/uL (1.5-8.5); NEUTROPHILS % 69.6 % (36.0-66.0); PLATELET COUNT, AUTOMATED 359 10^3/uL (150-450); RED BLOOD COUNT 4.88 10^6/uL (4.00-5.40); WHITE BLOOD COUNT 9.5 10^3/uL (4.0-10.0)
[2023-09-12 13:33] LABS: URIC ACID 3.8 MG/DL (3.1-7.8)
[2023-09-12 13:36] LABS: ALBUMIN 3.9 G/DL (3.2-5.2); ALKALINE PHOSPHATASE 106 U/L (46-116); ALT/SGPT 40 U/L (7.0-40); AST/SGOT 22 U/L (<34); BILIRUBIN,TOTAL 0.4 MG/DL (0.3-1.2); BLOOD UREA NITROGEN 14 MG/DL (9-23); CALCIUM LEVEL 9.5 MG/DL (8.5-10.1); CARBON DIOXIDE LEVEL 28 MMOL/L (20-31); CHLORIDE LEVEL 105 MMOL/L (98-107); CREATININE FOR GFR 0.74 MG/DL (0.55-1.30); GLOMERULAR FILTRATION RATE > 60.0 (>60); GLUCOSE, FASTING 74 MG/DL (60-100); POTASSIUM SERUM 4.2 MMOL/L (3.5-5.1); SODIUM LEVEL 142 MMOL/L (136-145); TOTAL PROTEIN 7.6 G/DL (5.7-8.2)
[2023-09-12 13:37] LABS: RHEUMATOID FACTOR QUANT < 3.5 IU/ML (<14)
[2023-09-12 13:50] LABS: ERYTHROCYTE SEDIMENTATION RATE 56 mm/hr (0-20)
[2023-09-13 23:07] LABS: ANA (HEP2) Negative (.); CYCLIC CITRULLINATED PEPTIDE 5 units (0-19)
== END ==
LOC: M SFHCADAM 10:28
PROVIDERS: ATTEND Physician Assistant
DX: M35.3 Polymyalgia rheumatica (principal); R21 Rash and other nonspecific skin eruption; R50.9 Fever, unspecified

== ENCOUNTER → 2023-09-26 | Outpatient (REF) | payer OTHER ==
[2023-09-28 16:09] LABS: CYTOMEGALOVIRUS IgM ANTIBODY <30.0 AU/mL (0.0-29.9); EBV AB TO NUCLEAR ANTIGEN <18.0 U/mL (0.0-17.9); EBV VIRAL CAPSID AG IgG <18.0 U/mL (0.0-17.9); EBV VIRAL CAPSID AG IgM <36.0 U/mL (0.0-35.9)
== END ==
LOC: M SFHCADAM 09:42
PROVIDERS: ATTEND Physician Assistant
DX: M35.3 Polymyalgia rheumatica (principal); R21 Rash and other nonspecific skin eruption; R50.9 Fever, unspecified; J06.9 Acute upper respiratory infection, unspecified

== ENCOUNTER → 2024-02-19 | Outpatient (REF) | payer OTHER | LOC: M SFHCWAGY 18:16 | PROVIDERS: ATTEND Nurse Practitioner Family | DX: Z12.4 Encounter for screening for malignant neoplasm of cervix (principal) | CPT/HCPCS: 87624; G0123 ==

== ENCOUNTER → 2024-03-31 | Outpatient (CLI) | payer OTHER | LOC: M RAD 10:04 | PROVIDERS: ATTEND Internal Medicine Rheumatology | DX: M35.3 Polymyalgia rheumatica (principal); R21 Rash and other nonspecific skin eruption; R79.82 Elevated C-reactive protein (CRP); R53.83 Other fatigue ==

== ENCOUNTER → 2024-03-31 | Outpatient (REF) | payer OTHER ==
[2024-03-31 13:59] LABS: BASO # 0.1 10^3/uL (0.0-0.2); BASO % 1.3 % (0.0-1.0); EOS # 0.2 10^3/uL (0.0-0.5); EOS % 2.1 % (0.0-3.0); HEMATOCRIT 39.4 % (36.0-47.0); HEMOGLOBIN 13.2 g/dl (12.0-15.5); LYMPH # 1.5 10^3/uL (1.5-5.0); LYMPH % 21.7 % (24.0-44.0); MEAN CORPUSCULAR HEMOGLOBIN 28.4 pg (27.0-33.0); MEAN CORPUSCULAR HGB CONC 33.5 g/dl (32.0-36.5); MEAN CORPUSCULAR VOLUME 84.9 fl (80.0-96.0); MONO # 0.5 10^3/uL (0.0-0.8); MONO % 7.3 % (2.0-8.0); NEUTROPHILS # 4.8 10^3/uL (1.5-8.5); NEUTROPHILS % 67.2 % (36.0-66.0); PLATELET COUNT, AUTOMATED 309 10^3/uL (150-450); RED BLOOD COUNT 4.64 10^6/uL (4.00-5.40); WHITE BLOOD COUNT 7.1 10^3/uL (4.0-10.0)
[2024-03-31 14:06] LABS: CPK CREATINE PHOSPHOKINASE 60 U/L (34-145); LDH LACTATE DEHYDROGENASE 174 U/L (120-246)
[2024-03-31 14:07] LABS: ALBUMIN 3.5 G/DL (3.2-5.2); ALKALINE PHOSPHATASE 90 U/L (46-116); ALT/SGPT 23 U/L (7.0-40); AST/SGOT 11 U/L (<34); BILIRUBIN,TOTAL 0.5 MG/DL (0.3-1.2); BLOOD UREA NITROGEN 11 MG/DL (9-23); CARBON DIOXIDE LEVEL 26 MMOL/L (20-31); CHLORIDE LEVEL 107 MMOL/L (98-107); CREATININE FOR GFR 0.67 MG/DL (0.55-1.30); GLOMERULAR FILTRATION RATE > 60.0 (>60); GLUCOSE, FASTING 80 MG/DL (60-100); SODIUM LEVEL 142 MMOL/L (136-145); TOTAL PROTEIN 6.9 G/DL (5.7-8.2)
[2024-03-31 14:16] LABS: ERYTHROCYTE SEDIMENTATION RATE 44 mm/hr (0-20)
[2024-03-31 14:21] LABS: HEPATITIS B SURFACE ANTIGEN NEGATIVE (NEGATIVE)
[2024-03-31 14:42] LABS: HEPATITIS B CORE ANTIBODY IGM NEGATIVE (NEGATIVE); HEPATITIS C VIRUS ABY INDEX < 0.02 INDEX (<0.8)
== END ==
LOC: M SFHCRHEU 09:30
PROVIDERS: ATTEND Internal Medicine Rheumatology
DX: M35.3 Polymyalgia rheumatica (principal); R79.82 Elevated C-reactive protein (CRP); R21 Rash and other nonspecific skin eruption; R53.83 Other fatigue

== ENCOUNTER → 2024-05-05 | Outpatient (REF) | payer OTHER | LOC: M SFHCRHEU 10:11 | PROVIDERS: ATTEND Internal Medicine Rheumatology | DX: M35.3 Polymyalgia rheumatica (principal); R79.82 Elevated C-reactive protein (CRP); R21 Rash and other nonspecific skin eruption; R53.83 Other fatigue ==

== ENCOUNTER → 2024-06-30 | Outpatient (REF) | payer OTHER | LOC: M SFHCADAM 09:56 | PROVIDERS: ATTEND Internal Medicine Rheumatology | DX: R53.83 Other fatigue (principal); R79.82 Elevated C-reactive protein (CRP); M02.3 Reiter's disease; M79.7 Fibromyalgia; R76.8 Other specified abnormal immunological findings in serum ==

== ENCOUNTER → 2024-12-12 | Outpatient (REF) | payer OTHER ==
[2024-12-12 14:23] LABS: ERYTHROCYTE SEDIMENTATION RATE 46 mm/hr (0-20); HEMATOCRIT 38.8 % (36.0-47.0); MEAN CORPUSCULAR HEMOGLOBIN 25.5 pg (27.0-33.0); MEAN CORPUSCULAR HGB CONC 30.9 g/dl (32.0-36.5); MEAN CORPUSCULAR VOLUME 82.4 fl (80.0-96.0); PLATELET COUNT, AUTOMATED 370 10^3/uL (150-450); RED BLOOD COUNT 4.71 10^6/uL (4.00-5.40); WHITE BLOOD COUNT 8.7 10^3/uL (4.0-10.0)
[2024-12-12 14:37] LABS: ALBUMIN 3.5 G/DL (3.2-5.2); ALKALINE PHOSPHATASE 96 U/L (35-104); ALT/SGPT 17 U/L (7.0-40); AST/SGOT 11 U/L (<34); BILIRUBIN,TOTAL 0.3 MG/DL (0.3-1.2); BLOOD UREA NITROGEN 13 MG/DL (9-23); CALCIUM LEVEL 9.2 MG/DL (8.5-10.1); CARBON DIOXIDE LEVEL 25 MMOL/L (20-31); CHLORIDE LEVEL 111 MMOL/L (98-107); GLOMERULAR FILTRATION RATE > 60.0 (>60); GLUCOSE, FASTING 88 MG/DL (60-100); POTASSIUM SERUM 3.9 MMOL/L (3.5-5.1); SODIUM LEVEL 143 MMOL/L (136-145); TOTAL PROTEIN 7.3 G/DL (5.7-8.2)
== END ==
LOC: M LABDRWAD 13:23
PROVIDERS: ATTEND Internal Medicine Rheumatology
DX: M02.3 Reiter's disease (principal); R79.82 Elevated C-reactive protein (CRP); R21 Rash and other nonspecific skin eruption; R53.83 Other fatigue

== ENCOUNTER → 2025-02-25 | Outpatient (REF) | payer OTHER ==
[2025-02-25 15:17] LABS: BASO # 0.1 10^3/uL (0.0-0.2); BASO % 1.2 % (0.0-1.0); EOS # 0.2 10^3/uL (0.0-0.5); EOS % 2.1 % (0.0-3.0); HEMATOCRIT 39.3 % (36.0-47.0); HEMOGLOBIN 12.5 g/dl (12.0-15.5); LYMPH # 1.6 10^3/uL (1.5-5.0); LYMPH % 18.8 % (24.0-44.0); MEAN CORPUSCULAR HGB CONC 31.8 g/dl (32.0-36.5); MEAN CORPUSCULAR VOLUME 84.9 fl (80.0-96.0); MONO # 0.7 10^3/uL (0.0-0.8); MONO % 8.1 % (2.0-8.0); NEUTROPHILS % 69.5 % (36.0-66.0); PLATELET COUNT, AUTOMATED 324 10^3/uL (150-450); RED BLOOD COUNT 4.63 10^6/uL (4.00-5.40); WHITE BLOOD COUNT 8.7 10^3/uL (4.0-10.0)
[2025-02-25 15:23] LABS: C REACTIVE PROTEIN QUANTITATIV 1.35 MG/DL (<1.0)
[2025-02-25 15:24] LABS: ALBUMIN 3.6 G/DL (3.2-5.2); ALKALINE PHOSPHATASE 88 U/L (35-104); ALT/SGPT 23 U/L (7.0-40); AST/SGOT 14 U/L (<34); BILIRUBIN,TOTAL 0.4 MG/DL (0.3-1.2); BLOOD UREA NITROGEN 18 MG/DL (9-23); CALCIUM LEVEL 9.4 MG/DL (8.5-10.1); CARBON DIOXIDE LEVEL 28 MMOL/L (20-31); CHLORIDE LEVEL 106 MMOL/L (98-107); CREATININE FOR GFR 0.66 MG/DL (0.55-1.30); GLOMERULAR FILTRATION RATE > 90.0 (>60); GLUCOSE, FASTING 75 MG/DL (60-100); POTASSIUM SERUM 4.8 MMOL/L (3.5-5.1); SODIUM LEVEL 140 MMOL/L (136-145)
[2025-02-25 15:26] LABS: ERYTHROCYTE SEDIMENTATION RATE 20 mm/hr (0-20)
== END ==
LOC: M SFHCRHEU 09:56
PROVIDERS: ATTEND Internal Medicine Rheumatology
DX: R79.82 Elevated C-reactive protein (CRP) (principal); R53.83 Other fatigue; R21 Rash and other nonspecific skin eruption

== ENCOUNTER → 2025-07-09 | Outpatient (REF) | payer OTHER ==
[~2025-07-09] MED LIST changes: -TRIA25CR TOP; +TRIA80CR15 TOP
== END ==
LOC: M LAB REF 12:14
PROVIDERS: ATTEND Nurse Practitioner Family
DX: R30.0 Dysuria (principal)

== ENCOUNTER → 2025-10-21 | Outpatient (CLI) | payer OTHER ==
[~2025-10-21] MED LIST changes: -IBUP-1022; -IBUP-1022 PO; +IBUP600T42; +IBUP600T42 PO
== END ==
LOC: M PLAIMG 09:10
PROVIDERS: ATTEND Nurse Practitioner Family
DX: R14.0 Abdominal distension (gaseous) (principal)